=== PATIENT | male | born 1950 | race Caucasian/White ===

== ENCOUNTER 2016-11-08 14:17 | Emergency (ER) | payer MEDICARE ==
--- NOTE | 2016-11-08 14:44 | ED ---
General Adult HPI - General Chief complaint: Fall Stated complaint: Fall Time Seen by Provider: 11/08/16 14:31 Source: patient, family, RN notes reviewed Mode of arrival: wheelchair Limitations: no limitations - History of Present Illness Initial comments: Patient 66-year-old male with a significant past medical history for astrocytoma , DVT, status post brain surgery times one month, who presents emergency room today with chief complaint of a head injury that occurred 1 day ago. Patient does admit that he was getting out of a lawn chair yesterday got tripped up falling down hitting the right side of his head. Does admit to a small abrasion. Patient states he was no loss conscious. Denies any headache. He denies any other complaints. Patient's at bedside providing history stating that they did call on-call neurologist who advised coming to the emergency room for a CT of the brain. Patient also admits to some discomfort to the right shoulder due to the fall. States worse with certain movements of abduction and extension. He denies any other complaints or associated symptoms. Patient denies any recent fever, chills, shortness of breath, chest pain, back pain, abdominal pain, nausea or vomiting, numbness or tingling, dysuria or hematuria, constipation or diarrhea, headaches or visual changes, or any other complaints. - Related Data Home Medications Medication Instructions Recorded Confirmed Benazepril HCl 20 mg PO DAILY 11/08/16 11/08/16 Cholecalciferol [Vitamin D3] 1,000 unit PO DAILY 11/08/16 11/08/16 Ciprofloxacin HCl [Cipro] 500 mg PO BID 11/08/16 11/08/16 Docusate [Colace] 100 mg PO BID 11/08/16 11/08/16 Enoxaparin [Lovenox] 100 mg SQ Q12H 11/08/16 11/08/16 Lacosamide [Vimpat] 200 mg PO BID 11/08/16 11/08/16 Mupirocin 2% Oint [Bactroban 2% 1 applic TOPICAL BID 11/08/16 11/08/16 Oint] Pravastatin Sodium [Pravachol] 20 mg PO HS 11/08/16 11/08/16 Tamsulosin HCl [Flomax] 0.4 mg PO HS 11/08/16 11/08/16 amLODIPine [Norvasc] 5 mg PO BID 11/08/16 11/08/16 Allergies Allergy/AdvReac Type Severity Reaction Status Date / Time No Known Allergies Allergy Verified 11/08/16 14:52 Review of Systems ROS Statement: Those systems with pertinent positive or pertinent negative responses have been documented in the HPI. ROS Other: All systems not noted in ROS Statement are negative. Past Medical History Past Medical History: Cancer, Deep Vein Thrombosis (DVT), Hypertension, Prostate Disorder Additional Past Medical History / Comment(s): glioma History of Any Multi-Drug Resistant Organisms: None Reported Past Surgical History: Orthopedic Surgery Additional Past Surgical History / Comment(s): brain surgery, neck surgery Past Psychological History: No Psychological Hx Reported Smoking Status: Never smoker Past Alcohol Use History: None Reported Past Drug Use History: None Reported General Exam - General Exam Comments Initial Comments: General: The patient is awake and alert, in no distress, and does not appear acutely ill. Eye: Pupils are equal, round and reactive to light, extra-ocular movements are intact. No nystagmus. There is normal conjunctiva bilaterally. No signs of icterus. Ears, nose, mouth and throat: There are moist mucous membranes and no oral lesions. Neck: The neck is supple, there is no tenderness or JVD. No cervical spine tenderness. Cardiovascular: There is a regular rate and rhythm. No murmur, rub or gallop is appreciated. Respiratory: Lungs are clear to auscultation, respirations are non-labored, breath sounds are equal. No wheezes, stridor, rales, or rhonchi. Musculoskeletal: Normal ROM. Normal appearance to the right shoulder. Shows good range of motion. Mild tenderness anteriorly Strength 5/5. Sensation intact. Pulses equal bilaterally 2+. Neurological: A&O x 3. CN II-XII intact, There are no obvious motor or sensory deficits. Coordination appears grossly intact. Speech is normal. Skin: Skin is warm and dry. Facial abrasion to the right side of forehead. Psychiatric: Cooperative, appropriate mood & affect, normal judgment. Limitations: no limitations Course Vital Signs 11/08/16 11/08/16 14:25 15:43 Temperature 98.0 F 97.9 F Pulse Rate 75 62 Respiratory 20 16 Rate Blood Pressure 110/60 123/71 O2 Sat by Pulse 98 96 Oximetry - Reevaluation(s) Reevaluation #1: 11/08/16 15:[address] brain shows 1. 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 There is deformity of the left ventricle with suggestion of parenchymal resection and communication with CSF space along the convexity. 2. However, there is tiny acute component of a subdural hematoma just deep to the left frontal craniotomy flap measuring 2 mm thick. No midline shift. These results were discussed with the patient and family at bedside. Patient did have surgery through [facility]. [facility]. Patient will be transferred Medical Decision Making - Medical Decision Making [facility] was contacted. [facility] did accept report for Dr. Grimm. He did discuss the case and they will accept a ER to ER transfer. Disposition Clinical Impression: Subdural hematoma Disposition: OTHER INSTITUTION NOT DEFINED Condition: Good Instructions: Subdural Hematoma (ED) Referrals: Matthew Chiu MD [Primary Care Provider] - 1-2 days Time of Disposition: 16:05 (Transferred by EMS) - Out of Hospital Transfer - Req. Specs Out of Hospital Transfer - Requested Specifics: Other Emergency Center ([facility])
--- NOTE | 2016-11-08 15:32 | CT ---
EXAMINATION TYPE: CT brain wo con DATE OF EXAM: 11/08/2016 COMPARISON: NONE HISTORY: 66-year-old male with fall injury. History of 3 prior brain surgeries. TECHNIQUE: Examination was done in axial plane without intravenous contrast. Coronal and sagittal r econstructions performed. CT DLP: 1118 mGycm Automated exposure control for dose reduction was used. FINDINGS: Deformity of the left lateral ventricle secondary to prior proximal resection. There is overlying lef t frontal craniotomy flap and moderate-sized chronic subdural or cystic hygroma along the left latera l convexity measuring up to 1.7 cm thick in the anterior left frontal region and 2.1 cm at the fronto parietal vertex. However, there is more hyperdense 2 mm thick subdural collection just deep to the cr aniotomy flap. There appears to be mild chronic mass effect onto the underlying brain parenchyma especially along th e left frontal lobe. No midline shift or hydrocephalus. No effacement of basal subarachnoid cisterns. Paranasal sinuses and mastoid air cells well pneumatized. Orbits and globes are intact. IMPRESSION: 1. 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 There is deformity of the left lateral ventricle with suggestion of prior parench ymal resection and communication with the CSF space along the convexity. 2. However, there is tiny acute component to the subdural hematoma just deep to the left frontal cran iotomy flap measuring 2 mm thick. No midline shift. Findings called to the ER and given to ENEIDA Melgar at 3:30 PM.
--- NOTE | 2016-11-08 15:36 | XR ---
EXAMINATION TYPE: XR shoulder complete RT DATE OF EXAM: 11/08/2016 COMPARISON: NONE HISTORY: 66-year-old male with pain after fall yesterday TECHNIQUE: 3 views FINDINGS: Degenerative changes at the acromioclavicular joint with a fragmented 1 cm sliver or loose body. Ther e is some soft tissue swelling suggested at the AC joint that could represent capsular hypertrophy or joint distention from a sprain. Subacromial space is preserved. No tendinous or bursal calcification s. No acute fracture, subluxation, or dislocation. IMPRESSION: Some swelling at the AC joint could relate to underlying capsular hypertrophy from osteoarthritic rc nge. Correlate for any point tenderness at the AC joint to exclude an AC joint sprain. Otherwise, no acute osseous abnormality seen.
[2016-11-08 15:50] VITALS: PULSE 62; RESP 16
[2016-11-08] MEDS ORDERED: SODIUM CHLORIDE 0.9% 1,000 ML IV STA (15:57)
[2016-11-08 16:35] LABS: Basophils % (A) 0 %; CH 32.4; CHCM 35.5; Eosinophils # (A) 0.1 k/uL (0-0.7); Eosinophils % (A) 2 %; HCT 37.3 % (39.0-53.0); HDW 2.91; HGB 12.9 gm/dL (13.0-17.5); Luc % (Auto) 4; Lymphocytes # (A) 1.5 k/uL (1.0-4.8); Lymphocytes % (A) 33 %; MCH 31.8 pg (25.0-35.0); MCHC 34.7 g/dL (31.0-37.0); MCV 91.5 fL (80.0-100.0); Mean Platelet Volume 7.1; Monocytes # (A) 0.4 k/uL (0-1.0); Monocytes % (A) 10 %; Neutrophils # (A) 2.3 k/uL (1.3-7.7); Neutrophils % (A) 51 %; RBC 4.07 m/uL (4.30-5.90); RDW 13.7 % (11.5-15.5); WBC 4.5 k/uL (3.8-10.6)
[2016-11-08 16:42] LABS: INR 1.1 (<1.2); Partial Thromboplastin Time 27.7 sec (22.0-30.0); Prothrombin Time 10.9 sec (9.0-12.0)
[2016-11-08 16:45] LABS: ALT 72 U/L (21-72); AST 30 U/L (17-59); Alkaline Phosphatase 47 U/L (38-126); Anion Gap 6 mmol/L; Blood Urea Nitrogen 9 mg/dL (9-20); Calcium 8.7 mg/dL (8.4-10.2); Carbon Dioxide 27 mmol/L (22-30); Chloride 105 mmol/L (98-107); Glucose 75 mg/dL (74-99); Non-African American GFR(MDRD) >60 (>60 ml/min/1.73 sqM); Potassium 3.9 mmol/L (3.5-5.1); Sodium 138 mmol/L (137-145); Total Bilirubin 0.3 mg/dL (0.2-1.3); Total Protein 5.6 g/dL (6.3-8.2)
[2016-11-08 16:52] VITALS: BP 125/64; TEMP 98.2
== END 2016-11-08 17:00 | disposition other institution (70) ==
LOC: EC 14:17
DX: S06.5X0A Traumatic subdural hemorrhage without loss of consciousness, initial encounter (principal); I10 Essential (primary) hypertension; Z86.718 Personal history of other venous thrombosis and embolism; Z85.9 Personal history of malignant neoplasm, unspecified; Z79.01 Long term (current) use of anticoagulants; Z79.899 Other long term (current) drug therapy; W01.10XA Fall on same level from slipping, tripping and stumbling with subsequent striking against unspecified object, initial encounter; Y92.009 Unspecified place in unspecified non-institutional (private) residence as the place of occurrence of the external cause
CPT/HCPCS: 36415; 70450; 80053; 85025; 85610; 85730; 99285

== ENCOUNTER 2021-02-06 11:40 | Day surgery (SDC) | payer MEDICARE ==
[2021-02-04 15:40] VITALS: BMI 30.9
--- NOTE | 2021-02-05 19:38 | HP ---
HISTORY AND PHYSICAL DATE OF SURGERY: 02/06/2021 Aries seals is an 70-year-old patient seen with progressive right knee pain. We discussed options for treatment. He elected to proceed with right knee arthroscopy. Consent was obtained. Medical clearance was provided. PAST MEDICAL HISTORY: Hypertension, hyperlipidemia. PAST SURGICAL HISTORY: Ankle surgery, brain surgery. MEDICATIONS: Amlodipine, benazepril, pravastatin. ALLERGIES: None. SOCIAL HISTORY: Denies tobacco use. PHYSICAL EVALUATION OF THE RIGHT KNEE: Range of motion is -2/3 to 120. Mild effusion. Tenderness medial and lateral joint lines. Positive medial Zachary's. Positive lateral Zachary's. Ligaments stable. Hip rotation without pain. Distal neurovascular exam intact. Right knee radiographs revealed moderate lateral compartment osteoarthritis. MRI right knee revealed a complex medial meniscal tear and bucket-handle lateral meniscal tear. IMPRESSION: 1. Internal derangement of right knee with meniscal tears. 2. Right knee osteoarthritis. 3. Hypertension. 4. Hyperlipidemia. PLAN: Right knee arthroscopy with partial meniscectomy and debridement. MMODL / IJN: [id number] /
[2021-02-06] MEDS ORDERED: LACTATED RINGERS 1,000 ML IV SCH (11:57)
[2021-02-06] MEDS ORDERED: HYDROmorphone 0.5 MG/0.5 ML SYRINGE IVP PRN (11:57)
[2021-02-06] MEDS ORDERED: LIDOCAINE 1% (10MG/ML) FOR IV START INTRADERMA PRN (11:57)
[2021-02-06] MEDS ORDERED: ONDANSETRON 4 MG/2 ML VIAL IVP ONE (11:57)
[2021-02-06] MEDS ORDERED: DEXAMETHASONE SOD PHOSPHATE 4 MG/ML 1 ML VIAL IV ONE (11:57)
[2021-02-06] MEDS ORDERED: MIDAZOLAM 2 MG/2 ML VIAL IV PRN (11:57)
[2021-02-06 12:55] LABS: Partial Thromboplastin Time 23.9 sec (22.0-30.0); Prothrombin Time 10.9 sec (9.0-12.0)
[2021-02-06 12:57] LABS: ALT 20 U/L (4-49); AST 21 U/L (17-59); African American GFR (CKD) >90 (>60 ml/min/1.73 sqM); Albumin 4.2 g/dL (3.5-5.0); Alkaline Phosphatase 45 U/L (38-126); Anion Gap 8 mmol/L; Blood Urea Nitrogen 18 mg/dL (9-20); Calcium 9.5 mg/dL (8.4-10.2); Carbon Dioxide 25 mmol/L (22-30); Chloride 105 mmol/L (98-107); Glucose 95 mg/dL (74-99); Non-African American GFR(CKD) >90 (>60 ml/min/1.73 sqM); Potassium 4.3 mmol/L (3.5-5.1); Sodium 138 mmol/L (137-145); Total Bilirubin 0.7 mg/dL (0.2-1.3)
[2021-02-06 12:59] LABS: Basophils % (A) 1 %; Eosinophils # (A) 0.1 k/uL (0-0.7); Eosinophils % (A) 1 %; HCT 42.6 % (39.0-53.0); HGB 15.5 gm/dL (13.0-17.5); Hyperchromasia Slight; Lymphocytes % (A) 32 %; MCHC 36.4 g/dL (31.0-37.0); MCV 90.6 fL (80.0-100.0); Monocytes # (A) 0.4 k/uL (0-1.0); Monocytes % (A) 6 %; Neutrophils # (A) 3.7 k/uL (1.3-7.7); Neutrophils % (A) 59 %; Platelet Count 194 k/uL (150-450); RDW 12.9 % (11.5-15.5); WBC 6.3 k/uL (3.8-10.6)
[2021-02-06] MEDS ORDERED: SUCCINYLCHOLINE CHLORIDE 100 MG/5 ML SYR IV ONE (13:42)
[2021-02-06] MEDS ORDERED: PROPOFOL 10 MG/ML 20 ML VIAL IV ONE (13:42)
[2021-02-06] MEDS ORDERED: fentaNYL (PF) 50 MCG/ML 2 ML AMP ONE (13:42)
[2021-02-06] MEDS ORDERED: BUPIVACAINE (PF) 0.25% 30 ML VIAL INTRAARTIC ONE ×2 (14:06→14:10)
--- NOTE | 2021-02-06 14:23 | P.OP ---
Date of Procedure: 02/06/21 Preoperative Diagnosis: Internal derangement right knee Postoperative Diagnosis: 1. Tear lateral meniscus right knee 2. Grade 3 chondromalacia medial femoral condyle right knee 3. Grade 4 chondromalacia lateral tibial plateau right knee 4. Grade 3/4 chondromalacia patella right knee 5. Reactive synovitis medial, lateral and suprapatellar compartments right knee Procedure(s) Performed: 1. Arthroscopic partial lateral meniscectomy right knee 2. Arthroscopic chondroplasty medial femoral condyle right knee 3. Arthroscopic partial synovectomy medial, lateral and suprapatellar compartments right knee Anesthesia: TIFFANYA, local Surgeon: Umair Nuñez Estimated Blood Loss (ml): 6 Pathology: none sent Condition: stable Disposition: PACU Indications for Procedure: 70-year-old patient seen with progressive right knee pain. After having treatment options discussed, he elected to proceed with arthroscopy. Operative Findings: See description of procedure Description of Procedure: Patient was taken to the operative suite. Patient underwent a general anesthetic by the department of anesthesia. Patient was given preoperative antibiotics. The right lower extremity was placed in a well-padded arthroscopic leg wood. The right leg was prepped and draped in the normal sterile orthopedic fashion. A lateral parapatellar and suprapatellar incision was made. Trochars were inserted. Arthroscopy was initiated. Suprapatellar pouch revealed diffuse thick reactive synovitis. The patellofemoral joint appeared to articulate congruently. There was grade 3/4 chondromalacia of the patellofemoral joint without any significant osteochondral tears present. The scope was guided into the medial gutter. No loose bodies or plica were identified. The scope was then guided into the medial compartment. A medial parapatellar incision was made. Trocar inserted followed by probe. The medial meniscus was found to have some superficial fraying. There were grade 3 chondromalacia changes medial femoral condyle with some osteochondral flap tears present. There was thick reactive synovitis anteriorly. I introduced a motorized shaver and debrided that area fraying posterior medial meniscus. I performed a chondroplasty of the medial femoral condyle getting down to stable osteochondral tissue. I performed a partial synovectomy decompressing the thick reactive synovitis. The residual osteochondral surface appeared stable. There was good decompression of the synovitis. Scope and probe were then guided into the intercondylar notch. Cruciates were identified, probed and found to be stable. The scope and probe were then guided into lateral compartment. There was a radial tear involving the posterior lateral meniscus. There was a very large area of grade 4 chondromalacia involving the lateral tibial plateau with a very large area of exposed bone encompassing approximately 80% tibial plateau. There was similar exposed bone on the lateral femoral condyle side. There was thick reactive synovitis anteriorly. I performed a partial lateral meniscectomy getting down to stable meniscal tissue. I performed a partial synovectomy decompressing the reactive synovitis. The shaver was removed. The residual meniscus was stable. There was good decompression of synovitis. The scope was in guided back into the suprapatellar compartment. I introduced a motorized shaver into the suprapatellar compartment. I performed a partial synovectomy. Shaver was removed. There was good decompression of the synovitis. I now took one more look around the entire knee, no residual debris. Instruments were now removed from the joint. The joint was infiltrated with .25% Marcaine. Steri- Strips were applied to the portal sites. Sterile dressings were applied. The patient was placed into a CHANDRA hose. No tourniquet was utilized. The patient was awakened, transferred to a bed and taken to recovery stable satisfactory condition.
[2021-02-06 14:29] VITALS: TEMP 97.4
[2021-02-06 15:25] VITALS: RESP 16
[2021-02-06 15:32] VITALS: BP 131/82; PULSE 63
== END 2021-02-06 16:21 | disposition home or self-care (01) ==
LOC: OR 11:40
PROVIDERS: ATTEND Orthopaedic Surgery
DX: M23.200 Derangement of unspecified lateral meniscus due to old tear or injury, right knee (principal); M22.41 Chondromalacia patellae, right knee; M65.861 Other synovitis and tenosynovitis, right lower leg; I10 Essential (primary) hypertension; E78.5 Hyperlipidemia, unspecified; I45.10 Unspecified right bundle-branch block; N40.0 Benign prostatic hyperplasia without lower urinary tract symptoms; I25.10 Atherosclerotic heart disease of native coronary artery without angina pectoris; I25.84 Coronary atherosclerosis due to calcified coronary lesion; R56.9 Unspecified convulsions; Z87.891 Personal history of nicotine dependence; Z98.890 Other specified postprocedural states; Z85.841 Personal history of malignant neoplasm of brain; Z79.82 Long term (current) use of aspirin; Z79.899 Other long term (current) drug therapy; Z88.8 Allergy status to other drugs, medicaments and biological substances
CPT/HCPCS: 80053; 85025; 85610; 85730; 29881; J2250; J1100; J0690; J2405; J3010; J0330; J2704

== ENCOUNTER → 2021-02-12 | Outpatient (CLI) | payer MEDICARE ==
--- NOTE | 2021-02-12 15:19 | EEG ---
ELECTROENCEPHALOGRAM REPORT DATE OF SERVICE: 02/12/2021 PREAMBLE: This is a 70-year-old male with history of malignant neoplasm of the brain. He was diagnosed with brain tumor in 2001 in the left frontal lobe. He had surgery to remove part of the tumor in 2013, 2014 and 2016. He had radiation in 2017 and had his first seizure. 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 The patient denies headache. CURRENT MEDICATIONS: Amlodipine, benazepril, aspirin, vitamin D, vitamin B12, Vimpat 250 mg b.i.d., Keppra 500 mg b.i.d., Pravachol and Flomax. EEG FINDINGS: This is a 21-channel digital EEG recorded with video component, utilizing 10/20 international system with referential and bipolar montages. Background consists of well developed, well regulated, moderate voltage activity in mixed frequencies of 7 hertz theta, with 8 hertz alpha activity seen in bihemispheric region. Background seems to be slightly reactive to eye opening and closing. Photic driving response was not seen. Hyperventilation was not performed. Some drowsiness was seen with appearance of bilaterally symmetric theta frequency rhythm. Deeper stages of sleep were not seen. No focal or generalized epileptiform activity was seen. IMPRESSION: This is essentially a normal awake and drowsy EEG. No focal, lateralized or epileptiform activity was seen. MMJLL / TIERNEYN: [id number] /
== END | disposition home or self-care (01) ==
LOC: NEUROMAIN 08:09
PROVIDERS: ATTEND Neurological Surgery
DX: I71.9 Aortic aneurysm of unspecified site, without rupture (principal)
CPT/HCPCS: 95816

== ENCOUNTER 2021-09-24 11:18 | Inpatient (IN) | payer MEDICARE ==
[2021-09-22 16:14] VITALS: BMI 31.1
[~2021-09-24 11:18] MED LIST: ACETAMINOPHEN TAB 500 MG TAB PO PRN; DEXAMETHASONE SOD PHOSPHATE 10 MG/ML 1 ML VIAL IV PRN; DOCUSATE 100 MG CAP PO PRN; FAMOTIDINE 20 MG/2 ML VIAL IVP PRN; HYDROmorphone 0.5 MG/0.5 ML SYRINGE IVP PRN; KETOROLAC 15 MG/ML 1 ML VIAL IVP PRN; LIDOCAINE 1% (10MG/ML) FOR IV START INTRADERMA PRN; ONDANSETRON 4 MG/2 ML VIAL IVP PRN; TRANEXAMIC ACID IN NACL,ISO-OS 1,000 MG in SALINE 1 100ML.BAG IVPB PRN; oxyCODONE ER 10 MG TAB.ER.12H PO PRN
[2021-09-24] MEDS: LACTATED RINGERS 1,000 ML IV SCH (12:20)
[2021-09-24] MEDS ORDERED: MIDAZOLAM 2 MG/2 ML VIAL IV ONE (12:40)
[2021-09-24] MEDS ORDERED: MIDAZOLAM 2 MG/2 ML VIAL ONE (13:00)
[2021-09-24] MEDS ORDERED: GLYCOPYRROLATE 0.2 MG/ML 2 ML VIAL ONE (13:00)
[2021-09-24] MEDS ORDERED: LIDOCAINE 2% INJ 20 MG/ML (2 ML VIAL) ONE (13:00)
[2021-09-24] MEDS ORDERED: fentaNYL (PF) 50 MCG/ML 2 ML AMP ONE (13:00)
[2021-09-24] MEDS ORDERED: ROPIVACAINE 5 MG/ML 30 ML VIAL ONE (13:00)
[2021-09-24] MEDS ORDERED: SODIUM CHLORIDE 0.9% (PF) 10 ML VIAL ONE (13:00)
[2021-09-24] MEDS ORDERED: ePHEDrine 50 MG/ML 1 ML VIAL ONE (13:00)
[2021-09-24] MEDS ORDERED: NEOSTIGMINE 1 MG/ML 10 ML VIAL ONE (13:00)
[2021-09-24] MEDS ORDERED: SUCCINYLCHOLINE CHLORIDE 100 MG/5 ML SYR IV ONE (13:00)
[2021-09-24] MEDS ORDERED: TRANEXAMIC ACID IN NACL,ISO-OS 1,000 MG/100 ML BAG ONE (13:00)
[2021-09-24] MEDS ORDERED: PROPOFOL 10 MG/ML 20 ML VIAL IV ONE (13:00)
[2021-09-24] MEDS ORDERED: ROCURONIUM 10 MG/ML (5 ML VIAL) IV ONE (13:00)
--- NOTE | 2021-09-24 13:16 | P.ANPRN ---
Procedure Note - Anesthesia - Nerve Block Performed Right Adductor Canal Time Out Performed: Yes (12:39) Date of Procedure: 09/24/21 Procedure Start Time: 12:39 Procedure Stop Time: 12:46 Location of Patient: PreOp Indication: Acute Post-Operative Pain, Requested by Surgeon (Dr Bonilla) Sedation Type: Sedate with meaningful contact maintained Preparation: Sterile Prep Position: Supine Catheter: None Needle Types: Pajunk Needle Gauge: 21 Ultrasound used to visualize needle placement: Yes Ultrasound used to observe medication spread: Yes Injectate: 0.5% Ropivacaine (see comment for volume) (15cc) Blood Aspirated: No Pain Paresthesia on Injection Noted: No Resistance on Injection: Normal Image Stored and Saved: Yes Events: Uneventful and Well Tolerated
--- NOTE | 2021-09-24 13:17 | P.ANPRN ---
Procedure Note - Anesthesia - Nerve Block Performed Right iPack Time Out Performed: Yes Date of Procedure: 09/24/21 Procedure Start Time: 12:47 Procedure Stop Time: 12:55 Location of Patient: PreOp Indication: Acute Post-Operative Pain, Requested by Surgeon (Dr Bonilla) Sedation Type: Sedate with meaningful contact maintained Preparation: Sterile Prep Position: Supine Catheter: None Needle Types: Pajunk Needle Gauge: 21 Ultrasound used to visualize needle placement: Yes Ultrasound used to observe medication spread: Yes Injectate: 0.5% Ropivacaine (see comment for volume) (15cc + 5cc PF Normal saline) Blood Aspirated: No Pain Paresthesia on Injection Noted: No Resistance on Injection: Normal Image Stored and Saved: Yes Events: Uneventful and Well Tolerated
[2021-09-24] MEDS ORDERED: ceFAZolin 3,000 MG in SODIUM CHLORIDE 0.9% IRRIGATIO 3,000 ML IRRIGATION ONE (13:36)
[2021-09-24] MEDS: ROPIVACAINE/EPI/CLONIDINE/KET 50 ML SYRINGE MISCELLANE PRN ×2 (13:36→14:25)
[2021-09-24] MEDS ORDERED: LACTATED RINGERS 1,000 ML IV ONE (15:30)
[2021-09-24] MEDS ORDERED: HYDROmorphone 0.5 MG/0.5 ML SYRINGE IVP PRN ×3 (15:46)
[2021-09-24] MEDS ORDERED: ONDANSETRON 4 MG/2 ML VIAL IVP PRN (15:46)
[2021-09-24] MEDS ORDERED: hydrOXYzine pamoate 25 MG CAP PO PRN (15:46)
[2021-09-24] MEDS ORDERED: NALOXONE 0.4 MG/ML 1 ML VIAL IV PRN (15:46)
--- NOTE | 2021-09-24 15:54 | P.OP ---
Date of Procedure: 09/24/21 Preoperative Diagnosis: 1. Severe right knee osteoarthritis 2. Coronary artery disease 3. History of DVT 4. Benign brain tumor Postoperative Diagnosis: Same Procedure(s) Performed: Right total knee arthroplasty Implants: 1. [employer]urant triathlon size #7 CR femur 2. [employer]urant triathlon size #7 universal tibial baseplate 3. Geena triathlon size #7, 11 mm CS polyliner 4. [employer]urant triathlon 35 mm asymmetric all poly-patellar button Anesthesia: GETA Surgeon: Dajuan Bonilla Stallion Keeper #1: Viraj Mathias Estimated Blood Loss (ml): 200 IV fluids (ml): 1,200 Pathology: none sent Condition: stable Disposition: PACU Indications for Procedure: The patient is a very pleasant 71-year-old male with a long-standing history of severe right knee pain secondary to arthritis. He is seen multiple providers for this. He has failed over 12 months of nonsurgical treatment and requested a total knee replacement. The patient has several pre-existing medical issues including a prior benign brain tumor requiring surgery. He has had some issues with gait disturbance due to this. I long discussion with the patient and his in the office prior to surgery. Due to his continued pain I think is a good candidate for an elective total knee replacement. We discussed the potential risks and complications of surgery including but certainly not limited to risks from anesthesia, superficial infection, deep periprosthetic joint infection, delayed wound healing, damage to local blood vessels or nerves, instability, stiffness, aseptic loosening, extensor mechanism problems, DVT, PE, need for revision surgery, the satisfaction of surgical outcome, and inability to regain preinjury level of function, and possibly loss of life or limb. The patient and his voiced understanding of these potential complications and also acknowledge that other less common complications are possible. They provided their verbal and written consent to go forward with surgery. Operative Findings: Severe tricompartmental osteoarthritis Description of Procedure: The patient was identified in preoperative holding and the correct operative extremity was verified and marked with a marker. I reviewed the consent form with the patient at length. All of their questions were answered. The patient was given a block by anesthesia. They were then brought back to the operating room. They were transferred onto the operating room table where a general anesthetic, preoperative antibiotics, and tranexamic acid were administered by anesthesia. A tourniquet was applied to the proximal aspect of the operative extremity. The contralateral extremity was padded under the heel and secured to the operating room table with a nonsterile blue towel and tape. The ipsilateral arm was carefully draped across the patient's chest and secured with a pillow and foam. A post was applied over the lateral aspect of the ipsilateral thigh and a bolster was placed under the ipsilateral foot. I verified that the operative extremity was stable and the knee was flexed to 90. The operative extremity was then placed in a leg wood, nonsterile drapes were applied, and the extremity was prepped and draped sterilely in the standard sterile fashion. Prior to starting surgery timeout was performed identifying the correct patient, operative extremity, and procedure. The leg was then elevated, exsanguinated with an Esmarch bandage, and the tourniquet was inflated. An anterior midline incision was made sharply with a scalpel. Once I had dissected deep to the superficial fascial layer medial and lateral flaps were elevated. A medial parapatellar arthrotomy was created. Upon opening the knee joint there were diffuse arthritic changes in all 3 compartments. The anterior horn of the medial meniscus were sharply released and a medial release was performed around the posterior medial corner of the knee to facilitate retractor placement. The fat pad was excised with electrocautery. The patella was found to be severely arthritic and a provisional cut was made with a sagittal saw to facilitate mobilization of the extensor mechanism during the procedure. Remnan ts of the ACL and PCL were then excised from the notch. 4 mm pins were then placed within the incision in the medial distal femur and proximal tibia. Arrays were applied to the pins and I verified they were completely tightened. The knee was then registered with the [employer] robot and manipulations in implant position were made to balance the knee and opitmize implant position. Using the [employer] robotic saw all cuts were made in accordance with our plan. After all bony fragments had been removed the cuts were verified with the planar probe. The tibia was then subluxed forward and sized. The knee was brought into flexion and a lamina bread stacker was placed to allow removal of the meniscal remnants both medially and laterally as well as posterior osteophytes. Local anesthetic was then infiltrated around the joint capsule. Trial implants were then placed within the knee. Range of motion and collateral ligament tension was then evaluated. Adjustments in implant size and position were then made accordingly. Once the knee was felt to be appropriately balanced the Everett pins were removed. The patella was then recut, sized, and punched. A trial patellar button was then placed. With the trial components in place, the patella tracked midline. The femur was then drilled and the trial component removed. The trial tibial component was then appropriately rotated, pinned, and prepared for the keel. All trial components were then removed from the knee. The knee was thoroughly irrigated with pulsatile lavage. Cement was prepared via vacuum mixing in a bowl on the back table. I then hand pressurized cement into the femur and tibia and placed the implants beginning with the tibial base tray and poly liner, femoral component, and finally the patellar button. All extruded cement was removed including from the pin sites. Once the cement had hardened the knee was evaluated one final time with the final polyethylene liner in place. The knee had full extension and flexion and felt stable to varus and valgus stress throughout the arc of motion. The tourniquet was released and with the tourniquet down the patella tracked midline. All bleeders were controlled with electrocautery. The knee was then soaked for 3 minutes with a dilute Betadine soak. The knee was thoroughly irrigated using 3 L of sterile saline and pulsatile lavage. A deep drain was placed. The extensor mechanism was then reapproximated using pop off Vicryl sutures followed by a running barbed suture. The knee was then closed in layers with a 0 strata fix for the deep fascial layer, 2-0 strata fix for the superficial subcutaneous layer and Monocryl and Steri-Strips for the skin. A sterile dressing and drain sponge were applied. I verified that all instrument, sponge, and sharp counts were correct. The patient was then transferred off the operating room table, extubated, and brought to recovery having tolerated the procedure well. Viraj Mathias PA-C was required as a skilled nursing home assistant due to the complexity of the procedure for patient positioning, draping, retraction, placement of hardware, and closure of wound. PLAN: The patient can weight-bear as tolerated on the operative extremity. DVT prophylaxis with Eliquis twice a day based on preoperative risk stratification due to his history of DVT/PE. Follow-up in the office in 2 weeks for wound check and x-rays of the knee including an AP and lateral.
--- NOTE | 2021-09-24 16:25 | XR ---
EXAMINATION TYPE: XR knee limited RT DATE OF EXAM: 09/24/2021 COMPARISON: X-ray dated 08/19/2021 INDICATION: Postoperative TECHNIQUE: 2 views of the left knee FINDINGS: Interval total knee arthroplasty. Good alignment of the prosthesis. Acute postoperative changes with operative bed soft tissue swelling, gas and surgical drain. Arterial atherosclerotic calcifications. IMPRESSION: As above.
[2021-09-24] MEDS ORDERED: HYDROmorphone 0.5 MG/0.5 ML SYRINGE IVP ONE (16:42)
[2021-09-24] MEDS: SENNOSIDES-DOCUSATE SODIUM 1 EACH TAB PO SCH (21:22)
[2021-09-24] MEDS: LACOSAMIDE 50 MG TABLET PO SCH (21:23)
[2021-09-24] MEDS: levETIRAcetam 500 MG TAB PO SCH (21:23)
[2021-09-24] MEDS ORDERED: NON FORMULARY DRUG (Lacosamide [Vimpat] 200 MG Tablet) PO SCH (22:00)
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
[2021-09-25] MEDS: HYDROcodone/APAP 5-325MG 1 EACH TAB PO PRN ×3 (08:28→20:17)
[2021-09-25] MEDS: CHOLECALCIFEROL 25 MCG (1000 IU) TABLET PO SCH (09:09)
[2021-09-25] MEDS: levETIRAcetam 500 MG TAB PO SCH ×2 (09:09→20:15)
[2021-09-25] MEDS: CALCIUM CARB-VIT D 500 MG-5 MCG TAB PO SCH (09:09)
[2021-09-25] MEDS: LACOSAMIDE 50 MG TABLET PO SCH ×2 (09:09→20:11)
[2021-09-25] MEDS: APIXABAN 2.5 MG TABLET PO SCH ×2 (09:09→20:10)
[2021-09-25 09:31] LABS: Basophils # (A) 0.02 X 10*3/uL (0.00-0.10); Basophils % (A) 0.1 %; Eosinophils # (A) 0.01 X 10*3/uL (0.04-0.35); Eosinophils % (A) 0.1 %; HCT 40.1 % (39.6-50.0); HGB 13.7 g/dL (13.0-17.0); Immature Grans, Automated 0.5 %; Lymphocytes # (A) 1.57 X 10*3/uL (0.90-5.00); MCH 30.6 pg (27.0-32.0); MCHC 34.2 g/dL (32.0-37.0); MCV 89.7 fL (80.0-97.0); Mean Platelet Volume 10.6 fL (9.5-12.2); Monocytes # (A) 1.16 X 10*3/uL (0.20-1.00); Monocytes % (A) 7.4 %; NRBC Per 100 WBC 0 /100 WBCS (0.0-0.0); Neutrophils % (A) 81.9 %; Platelet Count 203 X 10*3/uL (140-440); RBC 4.47 X 10*6/uL (4.40-5.60); WBC 15.74 X 10*3/uL (4.50-10.00)
--- NOTE | 2021-09-25 10:01 | P.PN ---
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 Patient is currently admitted under orthopedic surgery team status post right total knee arthroplasty completed on 09/24/[address] Bonilla. We have been consulted for continued medical management throughout patient's hospitalization. Physical exam: Patient seen and fully evaluated at bedside this morning. He is postoperative day 1 and currently reports pain is not controlled, upon further review patient did not take any of his pain medication throughout the night. During assessment patient's arrived to bedside and reports that nurse called her to come in as patient was reportedly refusing his pain medication overnight. Had long discussion with patient regarding importance of pain management during recovery process. Patient verbalized understanding. Patient was in agreement to take medication and RN medicated patient at this time. Patient denied having any other complaints or concerns including headache, lightheadedness, chest pain, palpitations, shortness of breath, or experiencing any increased numbness/tingling/weakness in his extremities. Patient has drain in place, appears to have moderate output in drain. Orthopedic plans to leave drain in pl luis an additional night due to output. We will continue to monitor leukocytosis with repeat a.m labs. Vital signs reviewed and stable. General: Nontoxic, no distress and appears stated age. Derm: Skin warm and dry, normal coloration for ethnicity. Head: Atraumatic, normocephalic and symmetric. Eyes: EOMs intact, no lid lag, and anicteric sclera Mouth: no lip lesions, mucus membranes moist Cardiovascular: regular rate and rhythm with normal S1S2, no murmur, positive posterior tibial pulses bilaterally, and cap refill < 2 seconds. Lungs: Respirations even, regular, and unlabored on room air. Lungs CTA bilaterally, no rhonchi, no rales, no wheezing, and no accessory muscle usage. Abdominal: soft, nontender to palpation, no guarding, no appreciable organomegaly Ext: ROM intact (remains limited with right knee secondary to postsurgical pain). No gross muscle atrophy, no edema, no contractures, postsurgical dressing intact to right knee, drain in place, CHANDRA frank Neuro: Speech clear, face symmetrical and CN II-XII grossly intact with no noted focal neuro deficits Psych: Alert and oriented to person, place, time, and situation. Appropriate and pleasant affect. Assessment and Plan of Care: History of glioma of the brain status post brain surgeries 3 resulting in right-sided deficits including weakness, tingling, and tremors of right upper and lower extremity Seizure disorder -Maintain seizure precautions. -Continue daily medication regimen with Keppra and Vimpat. -Fall precautions. -Safe and supportive care with assistance as needed. Leukocytosis -Likely reactive. WBCs 15.4. We will continue to monitor with repeat a.m. labs. Severe right knee osteoarthritis Status post right total knee arthroplasty -Management per primary admitting orthopedic surgery team including DVT prophylaxis, pain management, weightbearing, and PT/OT. -Encourage use of incentive spirometry 10-15 times hourly while awake. History of DVT -Patient was placed on DVT prophylaxis with Eliquis. Hypertension -Monitor vital signs and continue daily medication regimen with amlodipine and l isinopril. Hyperlipidemia -Continue daily medication regimen with pravastatin 20 mg nightly. BPH -Patient is urinating without difficulties and postoperative period, please continue daily medication regimen with Flomax. Thank you for allowing us to participate in the care of this pleasant patient. Do not hesitate to contact us with questions. Someone can be reached from the [facility] hospitalist group all hours of the day at [phone] or via [facility]. Objective - Vital Signs Vital signs: Vital Signs Temp 98.4 F 09/25/21 07:33 Pulse 65 09/25/21 07:33 Resp 17 09/25/21 07:33 BP 173/88 09/25/21 07:33 Pulse Ox 97 09/25/21 07:33 FiO2 Intake & Output 09/24/21 09/25/21 09/25/21 18:59 06:59 18:59 Intake Total 1591 120 Output Total 200 880 Balance 1391 -880 120 Weight 96.5 kg Intake: IV 1351 Oral 240 120 Output: Drainage 280 Right Knee 280 Urine 600 Estimated Blood Loss 200 Other: Voiding Method Toilet Diaper Incontinent # Voids 1 1 - Labs CBC & Chem 7: 09/25/21 06:30 Labs: Abnormal Lab Results - Last 24 Hours (Table) 09/25/21 Range/Units 06:30 WBC 15.74 H (4.50-10.00) X 10*3/uL Immature Gran # 0.08 H (0.00-0.04) X 10*3/uL Neutrophils # 12.90 H (1.80-7.70) X 10*3/uL Monocytes # 1.16 H (0.20-1.00) X 10*3/uL Eosinophils # 0.01 L (0.04-0.35) X 10*3/uL
--- NOTE | 2021-09-25 11:12 | P.PN ---
Subjective Progress Note Date: 09/25/21 This patient is a 71- year old male who is status-post right total knee arthroplasty on 09/24/21. Today he is postoperative day #1. The patient is seen and examined bedside. He is currently at the bedside chair. He states he is experiencing moderate pain in the right knee. He has been ambulating into the bathroom. He otherwise feels well and has no additional complaints. He denies chest pain, shortness breath, other, vomiting, fevers, chills. Vital signs stable. Objective - Vital Signs Vital signs: Vital Signs Temp 98.4 F 09/25/21 07:33 Pulse 65 09/25/21 07:33 Resp 17 09/25/21 07:33 BP 173/88 09/25/21 07:33 Pulse Ox 97 09/25/21 07:33 FiO2 Intake & Output 09/24/21 09/25/21 09/25/21 18:59 06:59 18:59 Intake Total 1591 120 Output Total 200 880 Balance 1391 -880 120 Weight 96.5 kg Intake: IV 1351 Oral 240 120 Output: Drainage 280 Right Knee 280 Urine 600 Estimated Blood Loss 200 Other: Voiding Method Toilet Diaper Incontinent # Voids 1 1 - Exam On examination, the patient is sitting up in a bedside chair in no apparent distress. He is alert and oriented 3. On inspection of the right knee, there is a clean, dry, intact OpSite surgical dressing in place. There is no bleeding or drainage to the dressing. There is mild knee swelling. Hemovac drain is in place. Patient has good strength and range of motion of the right ankle and toes. Motor and sensory function is intact of the right lower extremity. Dorsalis pedis pulses easily palpable, the right lower extremity is warm and well perfused with brisk capillary refill distally. Calf is soft and nontender to palpation. - Labs CBC & Chem 7: 09/25/21 06:30 Labs: Abnormal Lab Results - Last 24 Hours (Table) 09/25/21 Range/Units 06:30 WBC 15.74 H (4.50-10.00) X 10*3/uL Immature Gran # 0.08 H (0.00-0.04) X 10*3/uL Neutrophils # 12.90 H (1.80-7.70) X 10*3/uL Monocytes # 1.16 H (0.20-1.00) X 10*3/uL Eosinophils # 0.01 L (0.04-0.35) X 10*3/uL Assessment and Plan Assessment: Status-post right total knee arthroplasty on 09/24/21. Post-operative day #1. Plan: - Weight-bear as tolerated on right lower extremity with a walker. Up with assistance. - Physical therapy for gait and balance training. - Keep surgical dressing in place. Keep hemovac drain in place. - Pain management as needed. - Eliquis for DVT prophylaxis, as patient has history of DVT in 2017. - 2 doses of postoperative antibiotics complete. - Internal medicine for millicent-operative medical management. - Case management consult for discharge planning. Patient would like to go to rehab at discharge.
[2021-09-25] MEDS: LACTATED RINGERS 1,000 ML IV SCH (15:45)
[2021-09-25] MEDS: lisinopriL 20 MG TAB PO SCH (20:10)
[2021-09-25] MEDS: TAMSULOSIN 0.4 MG CAP.ER.24H PO SCH (20:10)
[2021-09-25] MEDS: amLODIPine 5 MG TAB PO SCH (20:10)
[2021-09-25] MEDS: PRAVASTATIN SODIUM 20 MG TAB PO SCH (20:10)
[2021-09-25] MEDS: SENNOSIDES-DOCUSATE SODIUM 1 EACH TAB PO SCH (20:11)
[2021-09-26 09:13] LABS: African American GFR (CKD) 98.5 (60.0-200.0); Albumin 3.9 g/dL (3.8-4.9); Albumin/Globulin Ratio 1.95 (1.60-3.17); Anion Gap 11.7 mmol/L (10.00-18.00); BUN/Creat Ratio 17.22 Ratio (12.00-20.00); Blood Urea Nitrogen 15.5 mg/dL (9.0-27.0); Calcium 9.1 mg/dL (8.7-10.3); Carbon Dioxide 24.3 mmol/L (20.0-27.5); Magnesium 1.9 mg/dL (1.5-2.4); Potassium 4.1 mmol/L (3.5-5.5); Total Bilirubin 0.8 mg/dL (0.30-1.20); Total Protein 5.9 g/dL (6.2-8.2)
[2021-09-26] MEDS: LACTATED RINGERS 1,000 ML IV SCH (09:32)
[2021-09-26] MEDS: APIXABAN 2.5 MG TABLET PO SCH ×2 (09:35→19:22)
[2021-09-26] MEDS: LACOSAMIDE 50 MG TABLET PO SCH ×2 (09:35→19:22)
[2021-09-26] MEDS: CALCIUM CARB-VIT D 500 MG-5 MCG TAB PO SCH (09:35)
[2021-09-26] MEDS: CHOLECALCIFEROL 25 MCG (1000 IU) TABLET PO SCH (09:35)
[2021-09-26] MEDS: levETIRAcetam 500 MG TAB PO SCH ×2 (09:36→19:22)
--- NOTE | 2021-09-26 10:41 | P.DS ---
Providers Date of admission: 09/25/21 14:50 Expected date of discharge: 09/26/21 Attending physician: Dajuan Bonilla Consults: 09/24/21 15:46 Consult Physician Routine Consulting Provider: Abida Ordonez Consult Reason/Comments: medical managemnent Do you want consulting provider notified?: Yes Primary care physician: Matthew Chiu MD Hospital Course: This is a 71-year-old male who was last seen with complaint of continued right knee pain. The patient has a known history of degenerative arthritis of the right knee and presents to discuss surgical options. After discussion and consideration the patient elects to proceed with right ottal knee arthroplasty. The patient is seen preoperatively by Dr. Chiu, cardiology and cleared for surgery. Patient underwent a right total knee arthroplasty on 09/24/[address] Bonilla. The patient is admitted to [facility] for total right knee arthroplasty. The procedures performed without complication or sequelae. Patient is doing well postoperatively. Vital signs are stable at discharge. Labs are stable at discharge. Today is postoperative day #2. The patient is examined bedside with Dr. Bonilla. Patient is up to the bedside chair. He notes moderate pain in the knee, although it is well-controlled on oral medication. He is ambulating with a walker. Sandoval catheter was inserted this morning for internal medicine, as patient is having issues with urinary retention. Patient has no additional complaints at this time. On examination, the patient is sitting up in the bedside chair in no apparent distress. He is alert and oriented 3. On inspection of his right knee, there is a clean, dry, intact Opsite surgical dressing in place. No bleeding or drainage to the dressing. Mild swelling of the knee. Hemovac drain has been removed. Motor and sensory function is intact of the right lower extremity. The right lower extremity is warm and well-perfused with brisk capillary refill distally. Calf is soft and nontender to palpation. The patient is discharged to rehab on postop day #2 pending medical clearance. Please see orders and refer to the med rec for accurate list of medications. Plan - Discharge Summary Discharge Rx Participant: Yes New Discharge Prescriptions: New Docusate [Colace] 100 mg PO BID #60 capsule Omeprazole 40 mg PO DAILY 30 Days #30 cap HYDROcodone/APAP 5-325MG [[place] 5-325] 1 - 2 tab PO Q6HR PRN #40 tab PRN Reason: Pain Apixaban [Eliquis] 2.5 mg PO BID 30 Days #60 tab No Action Cholecalciferol [Vitamin D3] 2,000 unit PO DAILY Tamsulosin HCl [Flomax] 0.4 mg PO DAILY@1899 Pravastatin Sodium [Pravachol] 20 mg PO DAILY@1899 amLODIPine [Norvasc] 5 mg PO DAILY@1899 Benazepril HCl 20 mg PO DAILY@1899 Lacosamide [Vimpat] 200 mg PO DAILY@1000,2199 levETIRAcetam [Keppra] 500 mg PO DAILY@1000,220 Aspirin [Adult Low Dose Aspirin EC] 81 mg PO Q12H Lacosamide [Vimpat] 50 mg PO DAILY@1000,2199 Calcium Carbonate/Vitamin D3 [Calcium 600 mg-D3 20 mcg (800 unit)] 1 each PO DAILY B-Complex with Vitamin C 1 each PO DAILY Discharge Medication List Benazepril HCl 20 mg PO DAILY@189911/08/16 [History] Cholecalciferol [Vitamin D3] 2,000 unit PO DAILY 11/08/16 [History] Pravastatin Sodium [Pravachol] 20 mg PO DAILY@189911/08/16 [History] Tamsulosin HCl [Flomax] 0.4 mg PO DAILY@189911/08/16 [History] amLODIPine [Norvasc] 5 mg PO DAILY@189911/08/16 [History] Aspirin [Adult Low Dose Aspirin EC] 81 mg PO Q12H 02/04/21 [History] levETIRAcetam [Keppra] 500 mg PO DAILY@1000,219902/04/21 [History] B-Complex with Vitamin C 1 each PO DAILY 09/22/21 [History] Calcium Carbonate/Vitamin D3 [Calcium 600 mg-D3 20 mcg (800 unit)] 1 each PO DAILY 09/22/21 [History] Lacosamide [Vimpat] 50 mg PO DAILY@1000,219909/22/21 [History] Lacosamide [Vimpat] 200 mg PO DAILY@1000,219909/22/21 [History] HYDROcodone/APAP 5-325MG [[place] 5-325] 1 - 2 tab PO Q6HR PRN #40 tab 09/25/21 [Rx] Apixaban [Eliquis] 2.5 mg PO BID 30 Days #60 tab 09/26/21 [Rx] Docusate [Colace] 100 mg PO BID #60 capsule 09/26/21 [Rx] Omeprazole 40 mg PO DAILY 30 Days #30 cap 09/26/21 [Rx] Follow up Appointment(s)/Referral(s): Dajuan Bonilla MD [Medical Doctor] - 10/09/21 10:30 am Activity/Diet/Wound Care/Special Instructions: Weight bear as tolerated on operative extremity with a walker. Keep operative dressing intact until follow-up appointment. Call the office if your dressing becomes saturated or falls off. Take pain medications as prescribed. Take Eliquis as prescribed x 4 weeks for blood clot prevention. Follow-up in the office in two weeks with Dr. Bonilla. Call the office with any questions or concerns, Discharge Disposition: TRANSFER TO SNF/ECF
[2021-09-26] MEDS: HYDROcodone/APAP 5-325MG 1 EACH TAB PO PRN ×2 (11:52→19:22)
--- NOTE | 2021-09-26 12:08 | CDI ---
Documentation Clarification Form Date: 09/26/2021 11:56:21 AM From: Citlalli Rodriguez CCS, CCDS Admit Date: 09/25/2021 02:50:00 PM Patient Name: Aries Saldaña Visit Number: [id number] Discharge Date: ATTENTION: The Clinical Documentation Specialists (CDI) and [facility] Coding Staff appreciate your assistance in clarifying documentation. Please respond to the clarification below the line at the bottom and electronically sign. The CDI & [facility] Coding staff will review the response and follow-up if needed. Please note: Queries are made part of the Legal Health Record. If you have any questions, please contact the author of this message via ITS. Dr. Arely Canas: The patient was admitted on 09/25 for an elective Right Total Knee Arthoplasty and has documented history of BPH. Per the 09/26 Discharge Summary, the following is documented: Sandoval catheter was inserted this morning for internal medicine, as patient is having issues with urinary retention. Additional clarification is requested regarding the relationship, if any, that exists between the diagnosis and the procedure. Patients Admitting Diagnosis 09/25: Severe right knee osteoarthritis, CAD, History of DVT and Benign Brain Tumor. BPH is documented in the 09/25 Medical Management Consult and in the 09/25 Medical Management Progress Note: BPH - Patient is urinating without difficulties and postoperative period, please continue daily medication regimen with Flomax. Post-Operative Diagnosis: Same. Procedure performed 09/24: Right Total Knee Arthroplasty History/Risk Factors: as above. Clinical Indicators: Patient presented as above and is being treated POD 2 for urinary retention, Sandoval catheter inserted on 09/26. Treatment: Home meds Flomax 0.4 mg Daily, continued. Sandoval catheter inserted 09/26 for retention. What relationship, if any, exists between the diagnosis of Urinary Retention and the procedure: [ ] Urinary Retention is a complication of surgical procedure [ x ] Urinary Retention is an expected outcome of the surgical procedure [ ] Urinary Retention is related to patients co-morbid condition(s), please specify: and is not a complication of the procedure [ ] Other please specify: [ ] Unable to determine (Template Last Revised: June 2020) MTDD
--- NOTE | 2021-09-26 17:33 | P.PN ---
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 Patient is currently admitted under orthopedic surgery team status post right total knee arthroplasty completed on 09/24/[address] Bonilla. We have been consulted for continued medical management throughout patient's hospitalization. Physical exam: Patient seen and fully evaluated at bedside this morning. He is postoperative day 2 and currently reports having improvement of postoperative pain but continued urinary retention. Patient requiring placement of Sandoval catheter this morning secondary to straight catheterization 3 attempts and continued urinary retention with RN reports of greater than 800 mL showing a bladder scan. Morning labs reviewed. Vital signs stable. Patient continues to deny having any headache, lightheadedness, dizziness, chest pain, palpitations, shortness of breath, or experiencing any numbness/tingling/weakness in his extremities. Postoperative drain was removed overnight accidentally by patient. Orthopedic surgery planning to discharge patient sometime in the next 24 hours to SNF, currently awaiting insurance authorization and placement. If patient receives authorization, it is okay for patient to be transferred to SNF with Sandoval in place and follow up with urology to have voiding challenge done on outpatient basis. Vital signs reviewed and stable. General: Nontoxic, no distress and appears stated age. Derm: Skin warm and dry, normal coloration for ethnicity. Head: Atraumatic, normocephalic and symmetric. Eyes: EOMs intact, no lid lag, and anicteric sclera Mouth: no lip lesions, mucus membranes moist Cardiovascular: regular rate and rhythm with normal S1S2, no murmur, positive posterior tibial pulses bilaterally, and cap refill < 2 seconds. Lungs: Respirations even, regular, and unlabored on room air. Lungs CTA bilaterally, no rhonchi, no rales, no wheezing, and no accessory muscle usage. Abdominal: soft, nontender to palpation, no guarding, no appreciable organomegaly Ext: ROM intact (remains limited with right knee secondary to postsurgical pain). No gross muscle atrophy, no edema, no contractures, postsurgical dressing intact to right knee, drain in place, CHANDRA mikye Neuro: Speech clear, face symmetrical and CN II-XII grossly intact with no noted focal neuro deficits Psych: Alert and oriented to person, place, time, and situation. Appropriate and pleasant affect. Assessment and Plan of Care: History of glioma of the brain status post brain surgeries 3 resulting in right-sided deficits including weakness, tingling, and tremors of right upper and lower extremity Seizure disorder -Maintain seizure precautions. -Continue daily medication regimen with Keppra and Vimpat. -Fall precautions. -Safe and supportive care with assistance as needed. Postoperative urinary retention with history of BPH -Patient required straight catheterization 3 secondary to continued urinary retention during post-operative period and having greater than 800 mL of retention. Sandoval catheter was placed. -Patient to continue Flomax 0.4 mg daily. -Recommend voiding challenge in 24-48 hours, if continued urinary retention patient may be discharged with Sandoval catheter and follow up outpatient with urology for further voiding challenges secondary to retention. Leukocytosis -Likely reactive. WBCs 15.4. We will continue to monitor with repeat a.m. labs. Severe right knee osteoarthritis Status post right total knee arthroplasty -Management per primary admitting orthopedic surgery team including DVT pr ophylaxis, pain management, weightbearing, and PT/OT. -Encourage use of incentive spirometry 10-15 times hourly while awake. History of DVT -Patient was placed on DVT prophylaxis with Eliquis. Hypertension -Monitor vital signs and continue daily medication regimen with amlodipine and lisinopril. Hyperlipidemia -Continue daily medication regimen with pravastatin 20 mg nightly. BPH -Patient is urinating without difficulties and postoperative period, please continue daily medication regimen with Flomax. Thank you for allowing us to participate in the care of this pleasant patient. Do not hesitate to contact us with questions. Someone can be reached from the [facility] hospitalist group all hours of the day at [phone] or via [employer]. Objective - Vital Signs Vital signs: Vital Signs Temp 98.2 F 09/26/21 08:20 Pulse 103 H 09/26/21 08:20 Resp 18 09/26/21 08:20 BP 132/77 09/26/21 08:20 Pulse Ox 94 L 09/26/21 08:20 FiO2 Intake & Output 09/25/21 09/26/21 09/26/21 18:59 06:59 18:59 Intake Total 780 Output Total 1050 825 Balance -270 -825 Intake: Oral 780 Output: Drainage 250 Right Knee 250 Urine 800 825 Straight 825 Other: Voiding Method Toilet Toilet Diaper Diaper Incontinent Incontinent # Voids 8 0 - Labs CBC & Chem 7: 09/25/21 06:30 09/26/21 05:55 Labs: Abnormal Lab Results - Last 24 Hours (Table) 09/25/21 Range/Units 06:30 WBC 15.74 H (4.50-10.00) X 10*3/uL Immature Gran # 0.08 H (0.00-0.04) X 10*3/uL Neutrophils # 12.90 H (1.80-7.70) X 10*3/uL Monocytes # 1.16 H (0.20-1.00) X 10*3/uL Eosinophils # 0.01 L (0.04-0.35) X 10*3/uL
[2021-09-26] MEDS: lisinopriL 20 MG TAB PO SCH (19:22)
[2021-09-26] MEDS: SENNOSIDES-DOCUSATE SODIUM 1 EACH TAB PO SCH (19:22)
[2021-09-26] MEDS: amLODIPine 5 MG TAB PO SCH (19:22)
[2021-09-26] MEDS: TAMSULOSIN 0.4 MG CAP.ER.24H PO SCH (19:22)
[2021-09-26] MEDS: PRAVASTATIN SODIUM 20 MG TAB PO SCH (19:22)
[2021-09-27] MEDS: CALCIUM CARB-VIT D 500 MG-5 MCG TAB PO SCH (07:52)
[2021-09-27] MEDS: CHOLECALCIFEROL 25 MCG (1000 IU) TABLET PO SCH (07:52)
[2021-09-27] MEDS: APIXABAN 2.5 MG TABLET PO SCH ×2 (07:52→20:16)
[2021-09-27] MEDS: LACTATED RINGERS 1,000 ML IV SCH (07:53)
[2021-09-27] MEDS: LACOSAMIDE 50 MG TABLET PO SCH ×2 (07:53→21:17)
[2021-09-27] MEDS: levETIRAcetam 500 MG TAB PO SCH ×2 (07:54→21:17)
--- NOTE | 2021-09-27 10:14 | P.PN ---
Subjective Progress Note Date: 09/27/21 Principal diagnosis: Status post right total knee arthroplasty This is a 71 year-old male post right total knee arthroplasty. This is post-op day 3. The patient was evaluated at the bedside today. The patient denies nausea, vomiting, abdominal pain, shortness of breath, and chest pain this morning. He states his pain is controlled at this time. The patient has been up with physical therapy. We are awaiting evaluation by Dr. Arceo for inpatient rehab placement per 's request. Objective - Vital Signs Vital signs: Vital Signs Temp 99.3 F 09/27/21 08:00 Pulse 80 09/27/21 08:00 Resp 17 09/27/21 08:00 BP 111/70 09/27/21 08:00 Pulse Ox 96 09/27/21 08:00 FiO2 Intake & Output 09/26/21 09/27/21 09/27/21 18:59 06:59 18:59 Intake Total 540 Output Total 1650 700 Balance -1110 -700 Intake: Oral 540 Output: Urine 1650 700 Straight 1650 Other: Voiding Method Toilet Indwelling Catheter Diaper Incontinent - Exam The patient does not appear in acute distress. Alert and orientated x3. Dressing is clean dry and intact. Incision appears fine with no erythema or active drainage. Calf is soft and nontender. Good foot and ankle motion without difficulty. Sensation and circulatory status is intact. - Labs CBC & Chem 7: 09/25/21 06:30 09/26/21 05:55 Assessment and Plan (1) Osteoarthritis of right knee Current Visit: Yes Status: Acute Code(s): M17.11 - UNILATERAL PRIMARY OSTEOARTHRITIS, RIGHT KNEE SNOMED Code(s): 989386636850970 (2) Status post total right knee replacement Current Visit: Yes Status: Acute Code(s): Z96.651 - PRESENCE OF RIGHT ARTIFICIAL KNEE JOINT SNOMED Code(s): 5397407202794 Plan: 1. Continue pain control 2. Anticoagulation with Eliquis 3. Continue physical therapy and ambulation 4. Discharge pending Dr. Arceo consultation vs. subacute rehab placement.
[2021-09-27] MEDS: HYDROcodone/APAP 5-325MG 1 EACH TAB PO PRN (11:01)
[2021-09-27 11:40] LABS: Basophils # (A) 0.04 X 10*3/uL (0.00-0.10); Basophils % (A) 0.3 %; Eosinophils # (A) 0.19 X 10*3/uL (0.04-0.35); Eosinophils % (A) 1.6 %; HCT 35.6 % (39.6-50.0); HGB 12.3 g/dL (13.0-17.0); Immature Grans, Automated 0.3 %; Lymphocytes # (A) 2.46 X 10*3/uL (0.90-5.00); Lymphocytes % (A) 20.7 %; MCH 31.5 pg (27.0-32.0); MCHC 34.6 g/dL (32.0-37.0); MCV 91.3 fL (80.0-97.0); Mean Platelet Volume 10.7 fL (9.5-12.2); Monocytes # (A) 1.18 X 10*3/uL (0.20-1.00); Monocytes % (A) 9.9 %; NRBC Per 100 WBC 0 /100 WBCS (0.0-0.0); Neutrophils # (A) 7.97 X 10*3/uL (1.80-7.70); Neutrophils % (A) 67.2 %; Platelet Count 189 X 10*3/uL (140-440); RDW 12.4 % (11.5-14.5); WBC 11.88 X 10*3/uL (4.50-10.00)
[2021-09-27 11:50] LABS: African American GFR (CKD) 103.4 (60.0-200.0); Albumin 3.5 g/dL (3.8-4.9); Albumin/Globulin Ratio 1.67 (1.60-3.17); Anion Gap 10.9 mmol/L (10.00-18.00); BUN/Creat Ratio 17.38 Ratio (12.00-20.00); Blood Urea Nitrogen 13.9 mg/dL (9.0-27.0); Calcium 8.9 mg/dL (8.7-10.3); Carbon Dioxide 25.1 mmol/L (20.0-27.5); Globulin 2.1 g/dL (1.6-3.3); Non-African American GFR(CKD) 89.2 (60.0-200.0); Potassium 4.1 mmol/L (3.5-5.5); Total Bilirubin 0.7 mg/dL (0.30-1.20); Total Protein 5.6 g/dL (6.2-8.2)
[2021-09-27] MEDS: polyethylene glycoL 3350 17 GM POWD.PACK PO SCH (13:17)
--- NOTE | 2021-09-27 14:29 | P.PN ---
Subjective Progress Note Date: 09/27/21 Principal diagnosis: s/p knee surgery This is a 71 year-old male post right total knee arthroplasty. This is post-op day 3. He states his pain is controlled at this time. The patient has been up with physical therapy. Patient has not had any bowel movement for the past 2 days. He also still has urinary catheter in place. Denied chest pain or shortness of breath. No fevers or chills. Objective - Vital Signs Vital signs: Vital Signs Temp 99.3 F 09/27/21 08:00 Pulse 80 09/27/21 08:00 Resp 17 09/27/21 08:00 BP 111/70 09/27/21 08:00 Pulse Ox 96 09/27/21 08:00 FiO2 Intake & Output 09/26/21 09/27/21 09/27/21 18:59 06:59 18:59 Intake Total 540 Output Total 1650 700 500 Balance -1110 -700 -500 Intake: Oral 540 Output: Urine 1650 700 500 Straight 1650 500 Other: Voiding Method Toilet Indwelling Catheter Diaper Incontinent - Exam Constitutional: No acute distress, conversant, pleasant Eyes:Anicteric sclerae, moist conjunctiva, no lid-lag, PERRLA, ENMT: Oropharynx clear, no erythema, exudates Neck: Supple, FROM, no masses, or JVD, No carotid bruits, No thyromegaly Lungs: Clear to auscultation, Clear to percussion, Normal respiratory effort, no accessory muscle use Cardiovascular: Heart regular in rate and rhythm, No murmurs, gallops, or rubs, No peripheral edema Abdominal: Soft, Nontender, no guarding, rebound or rigidity, Normoactive bowel sounds, No hepatomegaly, No splenomegaly, No palpable mass Skin: Normal temperature, tone, texture, turgor, no induration, No subcutaneous nodules, No rash, lesions, No ulcers Extremities: Right knee surgical dressing. No digital cyanosis, No clubbing, Pedal pulses intact and symmetrical, Radial pulses intact and symmetrical, No calf tenderness Psychiatric: Alert and oriented to person, place and time, appropriate affect, intact judgement Neuro: Muscles Strength 5/5 in all 4 extremities, Sensation to light touch gr ossly present throughout, Cranial nerves II-XII grossly intact, no focal sensory deficits - Labs CBC & Chem 7: 09/27/21 07:43 09/27/21 07:43 Labs: Abnormal Lab Results - Last 24 Hours (Table) 09/27/21 09/27/21 Range/Units 07:43 07:43 WBC 11.88 H (4.50-10.00) X 10*3/uL RBC 3.90 L (4.40-5.60) X 10*6/uL Hgb 12.3 L (13.0-17.0) g/dL Hct 35.6 L (39.6-50.0) % Neutrophils # 7.97 H (1.80-7.70) X 10*3/uL Monocytes # 1.18 H (0.20-1.00) X 10*3/uL Alkaline Phosphatase 40 L (41-126) U/L Total Protein 5.6 L (6.2-8.2) g/dL Albumin 3.5 L (3.8-4.9) g/dL Assessment and Plan Plan: History of glioma of the brain status post brain surgeries 3 resulting in right-sided deficits including weakness, tingling, and tremors of right upper and lower extremity Seizure disorder -Maintain seizure precautions. -Continue daily medication regimen with Keppra and Vimpat. -Fall precautions. -Safe and supportive care with assistance as needed. Postoperative urinary retention with history of BPH -Patient required straight catheterization 3 secondary to continued urinary retention during post-operative period and having greater than 800 mL of retention. Thakur catheter was placed. -Patient to continue Flomax 0.4 mg daily. -Voiding challenge today, d/c thakur and see if he was able to voide. Constipation -Laxatives Leukocytosis -Likely reactive. Severe right knee osteoarthritis Status post right total knee arthroplasty -Management per primary admitting orthopedic surgery team including DVT prophylaxis, pain management, weightbearing, and PT/OT. -Encourage use of incentive spirometry 10-15 times hourly while awake. History of DVT -Patient was placed on DVT prophylaxis with Eliquis. Hypertension -Monitor vital signs and continue daily medication regimen with amlodipine and lisinopril. Hyperlipidemia -Continue daily medication regimen with pravastatin 20 mg nightly. BPH -Patient is urinating without difficulties and postoperative period, please continue daily medication regimen with Flomax. We are awaiting evaluation by Dr. Arceo for inpatient rehab placement per 's request.
[2021-09-27] MEDS: amLODIPine 5 MG TAB PO SCH (19:21)
[2021-09-27] MEDS: lisinopriL 20 MG TAB PO SCH (19:21)
[2021-09-27] MEDS: PRAVASTATIN SODIUM 20 MG TAB PO SCH (19:21)
[2021-09-27] MEDS: TAMSULOSIN 0.4 MG CAP.ER.24H PO SCH (19:21)
[2021-09-27] MEDS: SENNOSIDES-DOCUSATE SODIUM 1 EACH TAB PO SCH (20:16)
[2021-09-28] MEDS: CALCIUM CARB-VIT D 500 MG-5 MCG TAB PO SCH (07:31)
[2021-09-28] MEDS: LACOSAMIDE 50 MG TABLET PO SCH ×2 (07:32→20:47)
[2021-09-28] MEDS: APIXABAN 2.5 MG TABLET PO SCH ×2 (07:32→20:47)
[2021-09-28] MEDS: polyethylene glycoL 3350 17 GM POWD.PACK PO SCH (07:32)
[2021-09-28] MEDS: CHOLECALCIFEROL 25 MCG (1000 IU) TABLET PO SCH (07:32)
[2021-09-28] MEDS: LACTATED RINGERS 1,000 ML IV SCH (07:33)
[2021-09-28] MEDS: levETIRAcetam 500 MG TAB PO SCH ×2 (07:33→20:48)
--- NOTE | 2021-09-28 09:13 | P.PN ---
Subjective Progress Note Date: 09/28/21 Principal diagnosis: Status post right total knee arthroplasty This is a 71 year-old male post right total knee arthroplasty. This is post-op day 4. The patient was evaluated at the bedside today. The patient denies nausea, vomiting, abdominal pain, shortness of breath, and chest pain this morning. He states his pain is controlled at this time. The patient has been up with physical therapy. We are awaiting evaluation by Dr. Arceo for inpatient rehab placement per 's request. Objective - Vital Signs Vital signs: Vital Signs Temp 98.2 F 09/28/21 08:00 Pulse 82 09/28/21 08:00 Resp 18 09/28/21 08:00 BP 115/73 09/28/21 08:00 Pulse Ox 95 09/28/21 08:00 FiO2 Intake & Output 09/27/21 09/28/21 09/28/21 18:59 06:59 18:59 Output Total 500 2900 Balance -500 -2900 Output: Urine 500 2900 Straight 500 Other: Voiding Method Indwelling Catheter Indwelling Catheter # Bowel Movements 1 - Exam The patient does not appear in acute distress. Alert and orientated x3. Dressing is clean dry and intact. Incision appears fine with no erythema or active drainage. Calf is soft and nontender. Good foot and ankle motion without difficulty. Sensation and circulatory status is intact. - Labs CBC & Chem 7: 09/27/21 07:43 09/27/21 07:43 Labs: Abnormal Lab Results - Last 24 Hours (Table) 09/27/21 09/27/21 Range/Units 07:43 07:43 WBC 11.88 H (4.50-10.00) X 10*3/uL RBC 3.90 L (4.40-5.60) X 10*6/uL Hgb 12.3 L (13.0-17.0) g/dL Hct 35.6 L (39.6-50.0) % Neutrophils # 7.97 H (1.80-7.70) X 10*3/uL Monocytes # 1.18 H (0.20-1.00) X 10*3/uL Alkaline Phosphatase 40 L (41-126) U/L Total Protein 5.6 L (6.2-8.2) g/dL Albumin 3.5 L (3.8-4.9) g/dL Assessment and Plan (1) Osteoarthritis of right knee Current Visit: Yes Status: Acute Code(s): M17.11 - UNILATERAL PRIMARY OSTEOARTHRITIS, RIGHT KNEE SNOMED Code(s): 896791262760402 (2) Status post total right knee replacement Current Visit: Yes Status: Acute Code(s): Z96.651 - PRESENCE OF RIGHT ARTIFICIAL KNEE JOINT SNOMED Code(s): 3625010301923 Plan: 1. Continue pain control 2. Anticoagulation with Eliquis 3. Continue physical therapy and ambulation 4. Discharge pending Dr. Arceo consultation vs. subacute rehab placement.
[2021-09-28] MEDS: HYDROcodone/APAP 5-325MG 1 EACH TAB PO PRN ×2 (10:27→20:47)
--- NOTE | 2021-09-28 12:01 | P.PN ---
Subjective Progress Note Date: 09/28/21 Principal diagnosis: s/p knee surgery Patient failed spontaneous voiding done yesterday, Thakur was reinserted back in. He did have a bowel movement however. He is currently working with physical therapy. Objective - Vital Signs Vital signs: Vital Signs Temp 98.2 F 09/28/21 08:00 Pulse 82 09/28/21 08:00 Resp 18 09/28/21 08:00 BP 115/73 09/28/21 08:00 Pulse Ox 95 09/28/21 08:00 FiO2 Intake & Output 09/27/21 09/28/21 09/28/21 18:59 06:59 18:59 Output Total 500 2900 Balance -500 -2900 Output: Urine 500 2900 Straight 500 Other: Voiding Method Indwelling Catheter Indwelling Catheter # Bowel Movements 1 - Exam Constitutional: No acute distress, conversant, pleasant Eyes:Anicteric sclerae, moist conjunctiva, no lid-lag, PERRLA, ENMT: Oropharynx clear, no erythema, exudates Neck: Supple, FROM, no masses, or JVD, No carotid bruits, No thyromegaly Lungs: Clear to auscultation, Clear to percussion, Normal respiratory effort, no accessory muscle use Cardiovascular: Heart regular in rate and rhythm, No murmurs, gallops, or rubs, No peripheral edema Abdominal: Soft, Nontender, no guarding, rebound or rigidity, Normoactive bowel sounds, No hepatomegaly, No splenomegaly, No palpable mass Skin: Normal temperature, tone, texture, turgor, no induration, No subcutaneous nodules, No rash, lesions, No ulcers Extremities: Right knee surgical dressing. 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 -Continue daily medication regimen with Keppra and Vimpat. -Fall precautions. -Safe and supportive care with assistance as needed. Postoperative urinary retention with history of BPH -Patient required straight catheterization 3 secondary to continued urinary re tention during post-operative period and having greater than 800 mL of retention. Thakur catheter was placed. -Flomax 0.4 mg daily. -Voiding challenge failed 09/27, thakur reinserted, will need outpatient urology follow up. Constipation -Laxatives Leukocytosis -Likely reactive. Severe right knee osteoarthritis Status post right total knee arthroplasty -Management per primary admitting orthopedic surgery team including DVT prophylaxis, pain management, weightbearing, and PT/OT. -Encourage use of incentive spirometry 10-15 times hourly while awake. History of DVT -Patient was placed on DVT prophylaxis with Eliquis. Hypertension -Monitor vital signs and continue daily medication regimen with amlodipine and lisinopril. Hyperlipidemia -Continue daily medication regimen with pravastatin 20 mg nightly. BPH -Patient is urinating without difficulties and postoperative period, please cont inue daily medication regimen with Flomax. We are awaiting evaluation by Dr. Arceo for inpatient rehab placement per 's request.
[2021-09-28] MEDS: amLODIPine 5 MG TAB PO SCH (19:06)
[2021-09-28] MEDS: lisinopriL 20 MG TAB PO SCH (19:06)
[2021-09-28] MEDS: PRAVASTATIN SODIUM 20 MG TAB PO SCH (19:06)
[2021-09-28] MEDS: TAMSULOSIN 0.4 MG CAP.ER.24H PO SCH (19:06)
[2021-09-28] MEDS: SENNOSIDES-DOCUSATE SODIUM 1 EACH TAB PO SCH (20:47)
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
[2021-09-29] MEDS: levETIRAcetam 500 MG TAB PO SCH ×2 (08:08→19:44)
[2021-09-29] MEDS: CHOLECALCIFEROL 25 MCG (1000 IU) TABLET PO SCH (08:08)
[2021-09-29] MEDS: LACOSAMIDE 50 MG TABLET PO SCH ×2 (08:08→19:43)
[2021-09-29] MEDS: polyethylene glycoL 3350 17 GM POWD.PACK PO SCH (08:09)
[2021-09-29] MEDS: HYDROcodone/APAP 5-325MG 1 EACH TAB PO PRN (08:09)
[2021-09-29] MEDS: LACTATED RINGERS 1,000 ML IV SCH (08:09)
[2021-09-29] MEDS: APIXABAN 2.5 MG TABLET PO SCH ×2 (08:09→19:44)
[2021-09-29] MEDS: CALCIUM CARB-VIT D 500 MG-5 MCG TAB PO SCH (08:09)
--- NOTE | 2021-09-29 11:31 | P.PN ---
Subjective Progress Note Date: 09/29/21 Principal diagnosis: s/p knee surgery Doing well. No complaints today other than his knee. Pain is tolerable however. No fevers. No chest pain or sob. Objective - Vital Signs Vital signs: Vital Signs Temp 98.7 F 09/29/21 07:28 Pulse 69 09/29/21 07:28 Resp 20 09/29/21 07:28 BP 122/73 09/29/21 07:28 Pulse Ox 95 09/29/21 07:28 FiO2 Intake & Output 09/28/21 09/29/21 09/29/21 18:59 06:59 18:59 Output Total 720 1100 375 Balance -720 -1100 -375 Output: Urine 720 1100 375 Other: Voiding Method Indwelling Catheter Indwelling Catheter - Exam Constitutional: No acute distress, conversant, pleasant Eyes:Anicteric sclerae, moist conjunctiva, no lid-lag, PERRLA, ENMT: Oropharynx clear, no erythema, exudates Neck: Supple, FROM, no masses, or JVD, No carotid bruits, No thyromegaly Lungs: Clear to auscultation, Clear to percussion, Normal respiratory effort, no accessory muscle use Cardiovascular: Heart regular in rate and rhythm, No murmurs, gallops, or rubs, No peripheral edema Abdominal: Soft, Nontender, no guarding, rebound or rigidity, Normoactive bowel sounds, No hepatomegaly, No splenomegaly, No palpable mass Skin: Normal temperature, tone, texture, turgor, no induration, No subcutaneous nodules, No rash, lesions, No ulcers Extremities: Right knee surgical dressing. 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 -Continue daily medication regimen with Keppra and Vimpat. -Fall precautions. -Safe and supportive care with assistance as needed. Postoperative urinary retention with history of BPH -Patient required straight catheterization 3 secondary to continued urinary retention during post-operative period and having greater than 800 mL of retention. Thakur catheter was placed. -Flomax 0.4 mg daily. -Voiding challenge failed 09/27, thakur reinserted, will need outpatient urology follow up. Constipation -Laxatives Leukocytosis -Likely reactive. Severe right knee osteoarthritis Status post right total knee arthroplasty -Management per primary admitting orthopedic surgery team including DVT prophylaxis, pain management, weightbearing, and PT/OT. -Encourage use of incentive spirometry 10-15 times hourly while awake. History of DVT -Patient was placed on DVT prophylaxis with Eliquis. Hypertension -Monitor vital signs and continue daily medication regimen with amlodipine and lisinopril. Hyperlipidemia -Continue daily medication regimen with pravastatin 20 mg nightly. BPH -Patient is urinating without difficulties and postoperative period, please continue daily medication regimen with Flomax. Pending placement
--- NOTE | 2021-09-29 17:13 | P.PN ---
Subjective Progress Note Date: 09/29/21 This patient is a 71- year old male who is status-post right total knee arthroplasty on 09/24/21. Today is postoperative day #5. The patient is seen and examined bedside. Pain in the right knee is well-controlled. He has been working with physical therapy. Dr. Arceo was consulted per 's request for possible discharge to inpatient rehab, although Dr. Arceo believes inpatient rehab is not appropriate for this patient. Case management is working on discharge to [facility]. Patient denies chest pain, shortness of breath, nausea, vomiting. Vital signs stable. Objective - Vital Signs Vital signs: Vital Signs Temp 97.5 F L 09/29/21 13:57 Pulse 85 09/29/21 13:57 Resp 20 09/29/21 13:57 BP 134/76 09/29/21 13:57 Pulse Ox 96 09/29/21 13:57 FiO2 Intake & Output 09/28/21 09/29/21 09/29/21 18:59 06:59 18:59 Output Total 720 1100 375 Balance -720 -1100 -375 Output: Urine 720 1100 375 Other: Voiding Method Indwelling Catheter Indwelling Catheter Indwelling Catheter - Exam On examination, the patient is sitting up in bed in no apparent distress. He is alert and oriented 3. On inspection of the right knee, there is a clean, dry, intact OpSite surgical dressing in place. There is no bleeding or drainage to the dressing. There is mild knee swelling. Hemovac drain has been removed. Patient has good strength and range of motion of the right ankle and toes. Motor and sensory function is intact of the right lower extremity. Dorsalis pedis pulses easily palpable, the right lower extremity is warm and well perfused with brisk capillary refill distally. Calf is soft and nontender to palpation. - Labs CBC & Chem 7: 09/27/21 07:43 09/27/21 07:43 Assessment and Plan Assessment: Status-post right total knee arthroplasty on 09/24/21. Post-operative day #5. Plan: - Weight-bear as tolerated on right lower extremity with a walker. Up with assistance. - Physical therapy for gait and balance training. - Keep surgical dressing in place. - Pain management as needed. - Eliquis for DVT prophylaxis, as patient has history of DVT in 2017. - Internal medicine for millicent-operative medical management. - [facility], pending medical clearance.
[2021-09-29] MEDS: TAMSULOSIN 0.4 MG CAP.ER.24H PO SCH (19:43)
[2021-09-29] MEDS: SENNOSIDES-DOCUSATE SODIUM 1 EACH TAB PO SCH (19:43)
[2021-09-29] MEDS: lisinopriL 20 MG TAB PO SCH (19:44)
[2021-09-29] MEDS: amLODIPine 5 MG TAB PO SCH (19:44)
[2021-09-29] MEDS: PRAVASTATIN SODIUM 20 MG TAB PO SCH (19:44)
--- NOTE | 2021-09-30 07:14 | P.PN ---
Progress Note - Text My consultation has typo in conclusion. I was under impression that discharge planning to SNF was already underway, not stent placement.
[2021-09-30 08:04] VITALS: BP 154/76; PULSE 91; RESP 18; TEMP 98.3
[2021-09-30] MEDS: APIXABAN 2.5 MG TABLET PO SCH (08:16)
[2021-09-30] MEDS: CALCIUM CARB-VIT D 500 MG-5 MCG TAB PO SCH (08:16)
[2021-09-30] MEDS: CHOLECALCIFEROL 25 MCG (1000 IU) TABLET PO SCH (08:17)
[2021-09-30] MEDS: LACTATED RINGERS 1,000 ML IV SCH (08:32)
[2021-09-30] MEDS: polyethylene glycoL 3350 17 GM POWD.PACK PO SCH (08:32)
--- NOTE | 2021-09-30 11:12 | P.DS ---
Providers Date of admission: 09/25/21 14:50 Expected date of discharge: 09/30/21 Attending physician: Dajuan Bonilla Consults: 09/24/21 15:46 Consult Physician Routine Consulting Provider: Abida Ordonez Consult Reason/Comments: medical managemnent Do you want consulting provider notified?: Yes 09/26/21 15:21 Consult Physician Routine Consulting Provider: Landry Arceo Consult Reason/Comments: in patient rehab Do you want consulting provider notified?: Yes Primary care physician: Matthew Chiu MD Hospital Course: This is a 71-year-old male who was last seen with complaint of continued right knee pain. The patient has a known history of degenerative arthritis of the right knee and presents to discuss surgical options. After discussion and consideration the patient elects to proceed with right total knee arthroplasty. The patient is seen preoperatively by Dr. Chiu and cardiology, and cleared for surgery. Patient underwent a right total knee arthroplasty on 09/24/21. The patient is admitted to [facility] for total right knee arthroplasty. The procedures performed without complication or sequelae. Patient is doing well postoperatively. Vital signs are stable at discharge. Labs are stable at discharge. Patient is examined bedside this morning. He states the pain in his right knee is well-controlled at this time. He is up to the bedside chair. He is ambulating with a walker. He states he otherwise feels well and denies chest pain, shortness breath, nausea, vomiting, fevers, chills. No complaints today d ischarge. On examination, the patient is sitting up in the bedside chair in no apparent distress. He is alert and oriented 3. On inspection of the right knee, there is a clean, dry, intact OpSite surgical dressing in place. No bleeding or drainage through the dressing. Mild swelling of the knee. Motor and sensory function is intact of the right lower extremity. Dorsalis pedis pulses easily palpable, the right lower extremity is warm and well-perfused. Nontender to palpation. The patient is discharged to subacute rehab on postop day #6, pending medical clearance. Please see orders and refer to the med rec for accurate list of medications. Plan - Discharge Summary Discharge Rx Participant: Yes New Discharge Prescriptions: New Docusate [Colace] 100 mg PO BID #60 capsule Omeprazole 40 mg PO DAILY 30 Days #30 cap HYDROcodone/APAP 5-325MG [Abie 5-325] 1 - 2 tab PO Q6HR PRN #40 tab PRN Reason: Pain Apixaban [Eliquis] 2.5 mg PO BID 30 Days #60 tab No Action Cholecalciferol [Vitamin D3] 2,000 unit PO DAILY Tamsulosin HCl [Flomax] 0.4 mg PO DAILY@1900 Pravastatin Sodium [Pravachol] 20 mg PO DAILY@1900 amLODIPine [Norvasc] 5 mg PO DAILY@1900 Benazepril HCl 20 mg PO DAILY@1900 Lacosamide [Vimpat] 200 mg PO DAILY@1000,2200 levETIRAcetam [Keppra] 500 mg PO DAILY@1000,2200 Aspirin [Adult Low Dose Aspirin EC] 81 mg PO Q12H Lacosamide [Vimpat] 50 mg PO DAILY@1000,2200 Calcium Carbonate/Vitamin D3 [Calcium 600 mg-D3 20 mcg (800 unit)] 1 each PO DAILY B-Complex with Vitamin C 1 each PO DAILY Discharge Medication List Benazepril HCl 20 mg PO DAILY@189911/08/16 [History] Cholecalciferol [Vitamin D3] 2,000 unit PO DAILY 11/08/16 [History] Pravastatin Sodium [Pravachol] 20 mg PO DAILY@189911/08/16 [History] Tamsulosin HCl [Flomax] 0.4 mg PO DAILY@189911/08/16 [History] amLODIPine [Norvasc] 5 mg PO DAILY@189911/08/16 [History] Aspirin [Adult Low Dose Aspirin EC] 81 mg PO Q12H 02/04/21 [History] levETIRAcetam [Keppra] 500 mg PO DAILY@1000,2200 02/04/21 [History] B-Complex with Vitamin C 1 each PO DAILY 09/22/21 [History] Calcium Carbonate/Vitamin D3 [Calcium 600 mg-D3 20 mcg (800 unit)] 1 each PO DAILY 09/22/21 [History] Lacosamide [Vimpat] 50 mg PO DAILY@1000,2200 09/22/21 [History] Lacosamide [Vimpat] 200 mg PO DAILY@1000,219909/22/21 [History] HYDROcodone/APAP 5-325MG [Abie 5-325] 1 - 2 tab PO Q6HR PRN #40 tab 09/25/21 [Rx] Apixaban [Eliquis] 2.5 mg PO BID 30 Days #60 tab 09/26/21 [Rx] Docusate [Colace] 100 mg PO BID #60 capsule 09/26/21 [Rx] Omeprazole 40 mg PO DAILY 30 Days #30 cap 09/26/21 [Rx] Follow up Appointment(s)/Referral(s): Dajuan Bonilla MD [Medical Doctor] - 10/09/21 10:30 am Activity/Diet/Wound Care/Special Instructions: Weight bear as tolerated on operative extremity with a walker. Keep operative dressing intact until follow-up appointment. Call the office if your dressing becomes saturated or falls off. Take pain medications as prescribed. Take Eliquis as prescribed x 4 weeks for blood clot prevention. Follow-up in the office in two weeks with Dr. Bonilla. Call the office with any questions or concerns, Discharge Disposition: TRANSFER TO SNF/ECF
--- NOTE | 2021-09-30 11:12 | P.PN ---
Subjective Progress Note Date: 09/30/21 Principal diagnosis: s/p knee surgery Seen this am, no new complaints. Doing well. Still with knee pain. Objective - Vital Signs Vital signs: Vital Signs Temp 98.3 F 09/30/21 08:00 Pulse 91 09/30/21 08:00 Resp 18 09/30/21 08:00 BP 154/76 09/30/21 08:00 Pulse Ox 92 L 09/30/21 08:00 FiO2 Intake & Output 09/29/21 09/30/21 09/30/21 18:59 06:59 18:59 Intake Total 800 Output Total 675 950 Balance 125 -950 Intake: Oral 800 Output: Urine 675 950 Other: Voiding Method Indwelling Catheter Indwelling Catheter - Exam Constitutional: No acute distress, conversant, pleasant Eyes:Anicteric sclerae, moist conjunctiva, no lid-lag, PERRLA, ENMT: Oropharynx clear, no erythema, exudates Neck: Supple, FROM, no masses, or JVD, No carotid bruits, No thyromegaly Lungs: Clear to auscultation, Clear to percussion, Normal respiratory effort, no accessory muscle use Cardiovascular: Heart regular in rate and rhythm, No murmurs, gallops, or rubs, No peripheral edema Abdominal: Soft, Nontender, no guarding, rebound or rigidity, Normoactive bowel sounds, No hepatomegaly, No splenomegaly, No palpable mass Skin: Normal temperature, tone, texture, turgor, no induration, No subcutaneous nodules, No rash, lesions, No ulcers Extremities: Right knee surgical dressing. 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 -Continue daily medication regimen with Keppra and Vimpat. -Fall precautions. -Safe and supportive care with assistance as needed. Postoperative urinary retention with history of BPH -Patient required straight catheterization 3 secondary to continued urinary ret ention during post-operative period and having greater than 800 mL of retention. Thakur catheter was placed. -Flomax 0.4 mg daily. -Voiding challenge failed 09/27, thakur reinserted, will need outpatient urology follow up. Constipation -Laxatives Leukocytosis -Likely reactive. Severe right knee osteoarthritis Status post right total knee arthroplasty -Management per primary admitting orthopedic surgery team including DVT prophylaxis, pain management, weightbearing, and PT/OT. -Encourage use of incentive spirometry 10-15 times hourly while awake. History of DVT -Patient was placed on DVT prophylaxis with Eliquis. Hypertension -Monitor vital signs and continue daily medication regimen with amlodipine and lisinopril. Hyperlipidemia -Continue daily medication regimen with pravastatin 20 mg nightly. BPH -Patient is urinating without difficulties and postoperative period, please continue daily medication regimen with Flomax. Patient going to rehab today.
[2021-09-30] MEDS: levETIRAcetam 500 MG TAB PO SCH (11:42)
[2021-09-30] MEDS: LACOSAMIDE 50 MG TABLET PO SCH (11:42)
[2021-09-30] MEDS: HYDROcodone/APAP 5-325MG 1 EACH TAB PO PRN (11:50)
== END 2021-09-30 14:03 | DRG 470 ==
LOC: OR 11:18 → 4SSUR 16:30 → OR 09-25 14:50
PROVIDERS: ADMIT Orthopaedic Surgery; ATTEND Orthopaedic Surgery
PROC: 0SRC0J9 Replacement of Right Knee Joint with Synthetic Substitute, Cemented, Open Approach (ICD-10-PCS; principal; 2021-09-25)
PROC: 8E0Y0CZ Robotic Assisted Procedure of Lower Extremity, Open Approach (ICD-10-PCS; 2021-09-25)
DX: M17.11 Unilateral primary osteoarthritis, right knee (principal); R47.01 Aphasia; D33.2 Benign neoplasm of brain, unspecified; E78.5 Hyperlipidemia, unspecified; G40.909 Epilepsy, unspecified, not intractable, without status epilepticus; I10 Essential (primary) hypertension; R25.1 Tremor, unspecified; I25.10 Atherosclerotic heart disease of native coronary artery without angina pectoris; N40.1 Benign prostatic hyperplasia with lower urinary tract symptoms; R33.8 Other retention of urine; Z74.1 Need for assistance with personal care; Z79.01 Long term (current) use of anticoagulants; Z79.82 Long term (current) use of aspirin; Z79.899 Other long term (current) drug therapy; Z86.011 Personal history of benign neoplasm of the brain; Z86.718 Personal history of other venous thrombosis and embolism; Z87.891 Personal history of nicotine dependence; Z98.890 Other specified postprocedural states; Z87.828 Personal history of other (healed) physical injury and trauma
CPT/HCPCS: 64447; 64999; 76942; 80053; 83735; 85025

== ENCOUNTER → 2021-11-06 | Outpatient (CLI) | payer MEDICARE ==
--- NOTE | 2021-11-06 16:25 | US ---
EXAMINATION TYPE: US venous doppler duplex LE RT DATE OF EXAM: 11/06/2021 3:08 PM COMPARISON: NONE CLINICAL HISTORY: 71-year-old male I80.9 PHLEBITIS AND THROMBOPHLEBITIS. RIGHT total knee in September, ll since then SIDE PERFORMED: Right TECHNIQUE: The lower extremity deep venous system is examined utilizing real time linear array sonog soo with graded compression, doppler sonography and color-flow sonography. FINDINGS: VESSELS IMAGED: Common Femoral Vein Deep Femoral Vein Greater Saphenous Vein * Femoral Vein Popliteal Vein Small Saphenous Vein * Proximal Calf Veins Peroneal veins Posterior tibial veins (* superficial vessels) Right Leg: Negative for DVT [employer] notes: left voicemail on Dr. Bonilla's cell phone IMPRESSION: No evidence for DVT within the right lower extremity.
== END | disposition home or self-care (01) ==
LOC: RADUSWWP 14:37
PROVIDERS: ATTEND Orthopaedic Surgery
DX: M25.561 Pain in right knee (principal); R26.89 Other abnormalities of gait and mobility; I80.9 Phlebitis and thrombophlebitis of unspecified site; Z96.651 Presence of right artificial knee joint; Z47.1 Aftercare following joint replacement surgery

== ENCOUNTER 2021-12-13 13:18 | Emergency (ER) | payer MEDICARE ==
[2021-12-13 14:14] VITALS: BP 144/75; PULSE 90; RESP 20; TEMP 97.8
--- NOTE | 2021-12-13 15:36 | ED ---
Male Urogenital HPI - General Chief complaint: Urogenital Stated complaint: catheter problem Time Seen by Provider: 12/13/21 14:52 Source: patient Mode of arrival: wheelchair Limitations: no limitations - History of Present Illness Initial comments: This patient is 71-year-old man here to have evaluation of abdomen and genital pain. Patient states that he had a Sandoval catheter that was placed by visiting nurse yesterday. He has been having urinary retention going back a number of months since he had a procedure that caused him to develop urinary retention. The patient states that the catheter that was used yesterday had a larger than usual balloon. He also notes that the catheter seems to have stopped draining. Yesterday during placement there had been some blood but it hadn't then been running with clear yellow urine they have not noted any recent urine drainage. MD Complaint: other -: hour(s) Location: penis, abdomen Radiation: none Severity: moderate Quality: aching Consistency: constant Improves with: none Worsens with: none indwelling catheter Reports: urinary retention - Related Data Home Medications Medication Instructions Recorded Confirmed Benazepril HCl 20 mg PO DAILY@189911/08/16 09/22/21 Cholecalciferol [Vitamin D3 (25 2,000 unit PO DAILY 11/08/16 09/22/21 Mcg = 1000 Iu)] Pravastatin Sodium [Pravachol] 20 mg PO DAILY@189911/08/16 09/22/21 Tamsulosin HCl [Flomax] 0.4 mg PO DAILY@189911/08/16 09/22/21 amLODIPine [Norvasc] 5 mg PO DAILY@189911/08/16 09/22/21 Aspirin [Adult Low Dose Aspirin EC] 81 mg PO Q12H 02/04/21 09/22/21 levETIRAcetam [Keppra] 500 mg PO DAILY@1000,219902/04/21 09/22/21 B-Complex with Vitamin C 1 each PO DAILY 09/22/21 09/22/21 Calcium Carbonate/Vitamin D3 1 each PO DAILY 09/22/21 09/22/21 [Calcium 600 mg-D3 20 mcg (800 unit)] Lacosamide [Vimpat] 50 mg PO DAILY@1000,2200 09/22/21 09/22/21 Lacosamide [Vimpat] 200 mg PO DAILY@1000,2200 09/22/21 09/22/21 Previous Rx's Medication Instructions Recorded HYDROcodone/APAP 5-325MG [[place] 1 - 2 tab PO Q6HR PRN #40 tab 09/25/21 5-325] Apixaban [Eliquis] 2.5 mg PO BID 30 Days #60 tab 09/26/21 Docusate [Colace] 100 mg PO BID #60 capsule 09/26/21 Omeprazole 40 mg PO DAILY 30 Days #30 cap 09/26/21 Allergies Allergy/AdvReac Type Severity Reaction Status Date / Time No Known Allergies Allergy Verified 12/13/21 14:13 Review of Systems ROS Statement: Those systems with pertinent positive or pertinent negative responses have been documented in the HPI. ROS Other: All systems not noted in ROS Statement are negative. Constitutional: Denies: fever, chills Respiratory: Denies: cough, dyspnea Cardiovascular: Denies: chest pain, palpitations, edema Gastrointestinal: Reports: as per HPI, abdominal pain. Denies: nausea, vomiting, diarrhea, constipation Genitourinary: Reports: as per HPI. Denies: testicular pain, testicular mass Musculoskeletal: Denies: back pain Skin: Denies: rash Past Medical History Past Medical History: Cancer, Deep Vein Thrombosis (DVT), Hypertension, Prostate Disorder Additional Past Medical History / Comment(s): glioma History of Any Multi-Drug Resistant Organisms: None Reported Past Surgical History: Orthopedic Surgery Additional Past Surgical History / Comment(s): brain surgery, neck surgery Past Anesthesia/Blood Transfusion Reactions: No Reported Reaction, Motion Sickness Past Psychological History: No Psychological Hx Reported Smoking Status: Former smoker Past Alcohol Use History: None Reported Past Drug Use History: None Reported - Past Family History Mother Family Medical History: No Reported History General Exam Limitations: no limitations General appearance: alert, in no apparent distress Head exam: Present: atraumatic, normocephalic Respiratory exam: Present: normal lung sounds bilaterally. Absent: respiratory distress, wheezes, rales, rhonchi, stridor Cardiovascular Exam: Present: regular rate, normal rhythm, normal heart sounds. Absent: systolic murmur, diastolic murmur, rubs, gallop GI/Abdominal exam: Present: soft, tenderness, guarding, other (Patient has suprapubic fullness, with some tenderness and guarding consistent with distended bladder). Absent: distended, rebound, rigid, mass exam: Present: normal inspection, other (There is catheter present, no blood at urethral meatus) Extremities exam: Present: normal inspection, normal capillary refill. Absent: pedal edema, calf tenderness Back exam: Present: normal inspection. Absent: CVA tenderness (R), CVA tenderness (L) Skin exam: Present: warm, dry, intact. Absent: normal color, rash Course Vital Signs 12/13/21 14:08 Temperature 97.8 F Pulse Rate 90 Respiratory 20 Rate Blood Pressure 144/75 O2 Sat by Pulse 95 Oximetry Disposition Clinical Impression: Sandoval catheter problem Disposition: HOME SELF-CARE Condition: Good Instructions (If sedation given, give patient instructions): Sandoval Catheter Placement and Care (ED) Is patient prescribed a controlled substance at d/c from ED?: No Referrals: Nj Briseno MD [Primary Care Provider] - 1-2 days
== END 2021-12-13 17:18 | disposition home or self-care (01) ==
LOC: EC 13:18
DX: T83.091A Other mechanical complication of indwelling urethral catheter, initial encounter (principal); I10 Essential (primary) hypertension; Z86.718 Personal history of other venous thrombosis and embolism; Z87.891 Personal history of nicotine dependence; Z79.899 Other long term (current) drug therapy; Y84.6 Urinary catheterization as the cause of abnormal reaction of the patient, or of later complication, without mention of misadventure at the time of the procedure
CPT/HCPCS: 99283

== ENCOUNTER → 2022-01-16 | Outpatient (CLI) | payer MEDICARE ==
[2022-01-16 18:36] LABS: African American GFR (CKD) 99.6 (60.0-200.0); Albumin 4.2 g/dL (3.8-4.9); Albumin/Globulin Ratio 1.47 (1.60-3.17); Anion Gap 6.9 mmol/L (10.00-18.00); BUN/Creat Ratio 23.49 Ratio (12.00-20.00); Blood Urea Nitrogen 20.6 mg/dL (9.0-27.0); Calcium 9.4 mg/dL (8.7-10.3); Carbon Dioxide 30.2 mmol/L (20.0-27.5); Globulin 2.9 g/dL (1.6-3.3); Non-African American GFR(CKD) 85.9 (60.0-200.0); Potassium 4.5 mmol/L (3.5-5.5); Total Bilirubin 0.4 mg/dL (0.30-1.20); Total Protein 7.1 g/dL (6.2-8.2)
[2022-01-16 18:54] LABS: Basophils # (A) 0.04 X 10*3/uL (0.00-0.10); Basophils % (A) 0.6 %; Eosinophils % (A) 1.4 %; HCT 42.4 % (39.6-50.0); HGB 14.7 g/dL (13.0-17.0); Immature Grans, Automated 0.3 %; Lymphocytes % (A) 31.2 %; MCH 30.4 pg (27.0-32.0); MCHC 34.7 g/dL (32.0-37.0); MCV 87.8 fL (80.0-97.0); Mean Platelet Volume 10.7 fL (9.5-12.2); Monocytes # (A) 0.61 X 10*3/uL (0.20-1.00); Monocytes % (A) 8.6 %; NRBC Per 100 WBC 0 /100 WBCS (0.0-0.0); Neutrophils # (A) 4.09 X 10*3/uL (1.80-7.70); Neutrophils % (A) 57.9 %; Platelet Count 200 X 10*3/uL (140-440); RBC 4.83 X 10*6/uL (4.40-5.60); RDW 12.9 % (11.5-14.5); WBC 7.06 X 10*3/uL (4.50-10.00)
[2022-01-16 20:55] LABS: Appearance,Urine Clear (Clear); Bilirubin,Urine Negative (Negative); Blood,Urine Moderate (Negative); Color,Urine Dark Yellow (Yellow); Ketones,Urine Negative (Negative); Nitrite,Urine Positive (Negative); Urobilinogen,Urine 0.2 (0.2,1.0)
[2022-01-16 22:22] LABS: Bacteria,Urine 2+ /HPF (None Seen)
== END | disposition home or self-care (01) ==
LOC: LABPAT 11:40
PROVIDERS: ATTEND Urology
DX: Z01.812 Encounter for preprocedural laboratory examination (principal); N40.1 Benign prostatic hyperplasia with lower urinary tract symptoms
CPT/HCPCS: 80053; 81001; 85025; 87086

== ENCOUNTER 2022-01-23 13:00 | Day surgery (SDC) | payer MEDICARE ==
[2022-01-20 10:33] VITALS: BMI 30.8
--- NOTE | 2022-01-22 19:15 | P.GSHP ---
History of Present Illness H&P Date: 01/22/22 71 yo male with post op urine retention after knee surgery. He has failed several attempts to void without the catheter post surgery using flomax. His cysto showed an obstructing prostate. His prostate measured 35 gms. He was given treatment options and we have chosen a bipolar turp - Constitutional Constitutional: Denies chills, Denies fever - EENT Eyes: denies blurred vision, denies pain Ears, nose, mouth and throat: Denies headache, Denies sore throat - Cardiovascular Cardiovascular: Denies chest pain, Denies shortness of breath - Respiratory Respiratory: Denies cough, Denies 7 - Gastrointestinal Gastrointestinal: Denies abdominal pain, Denies diarrhea, Denies nausea, Denies vomiting - Genitourinary (Female) Genitourinary: Denies dysuria, Denies hematuria - Genitourinary (Male) Genitourinary: Denies dysuria, Denies hematuria - Musculoskeletal Musculoskeletal: Denies myalgias - Integumentary Integumentary: Denies pruritus, Denies rash - Neurological Neurological: Denies numbness, Denies weakness - Psychiatric Psychiatric: Denies anxiety, Denies depression - Endocrine Endocrine: Denies fatigue, Denies weight change Past Medical History Past Medical History: Deep Vein Thrombosis (DVT), Hypertension, Prostate Disorder, Seizure Disorder Additional Past Medical History / Comment(s): glioma, last seizure 12/10/21(attempt to reduce seizure medications), started rx for UTI 01/20/22, indwelling catheter since knee replacement surgery for urinary retention History of Any Multi-Drug Resistant Organisms: None Reported Past Surgical History: Joint Replacement, Orthopedic Surgery Additional Past Surgical History / Comment(s): brain surgery x3 to remove as much of gliioma as possible,rt knee replacement, ORIF rt ankle, surgery for fx neck, Hemorrhoidectomy, arthroscopy rt knee Past Anesthesia/Blood Transfusion Reactions: Motion Sickness Smoking Status: Former smoker - Past Family History Mother Family Medical History: Cancer Additional Family Medical History / Comment(s): breast, oral Medications and Allergies Home Medications Medication Instructions Recorded Confirmed Type Benazepril HCl 20 mg PO QAM 11/08/16 01/20/22 History Pravastatin Sodium [Pravachol] 20 mg PO HS 11/08/16 01/20/22 History Tamsulosin HCl [Flomax] 0.4 mg PO HS 11/08/16 01/20/22 History amLODIPine [Norvasc] 5 mg PO HS 11/08/16 01/20/22 History Aspirin [Adult Low Dose Aspirin EC] 81 mg PO Q12H 02/04/21 01/20/22 History levETIRAcetam [Keppra] 500 mg PO Q12HR 02/04/21 01/20/22 History Calcium Carbonate/Vitamin D3 1 each PO DAILY 09/22/21 01/20/22 History [Calcium 600 mg-D3 20 mcg (800 unit)] Lacosamide [Vimpat] 50 mg PO DAILY@1000,2200 09/22/21 01/20/22 History Lacosamide [Vimpat] 200 mg PO DAILY@1000,2200 09/22/21 01/20/22 History Levofloxacin [Levaquin] 500 mg PO DAILY 01/20/22 01/20/22 History Vitamin B Complex 1 each PO QAM 01/20/22 01/20/22 History Allergies Allergy/AdvReac Type Severity Reaction Status Date / Time No Known Allergies Allergy Verified 01/20/22 10:10 Surgical - Exam - General well developed, well nourished, no distress - Eyes PERRL - ENT no hearing loss - Neck trachea midline - Respiratory normal expansion, normal respiratory effort - Cardiovascular Rhythm: regular - Genitourinary indwelling catheter. enlarged benign prostate. normal penis with no external lesions, testicles present - Integumentary no rash - Neurologic somewhat aphasic secondary to brain surgery normal coordination - Musculoskeletal normal posture - Psychiatric oriented to time, oriented to person, oriented to place Assessment and Plan Assessment: Impression: urine retention. History of glioma with secondary aphasia, cardiac disease Plan: the patient will undergo a bipolar turp He has been cleared by Dr Bhatia
[~2022-01-23 13:00] MED LIST changes: -ACETAMINOPHEN TAB 500 MG TAB PO PRN; +AMPICILLIN 1,000 MG in SODIUM CHLORIDE 0.9% 50 ML IVPB PRN; -DEXAMETHASONE SOD PHOSPHATE 10 MG/ML 1 ML VIAL IV PRN; -DOCUSATE 100 MG CAP PO PRN; -FAMOTIDINE 20 MG/2 ML VIAL IVP PRN; +GENTAMICIN 120 MG in SODIUM CHLORIDE 0.9% 100 ML IVPB PRN; -KETOROLAC 15 MG/ML 1 ML VIAL IVP PRN; +LACTATED RINGERS 1,000 ML IV SCH; -LIDOCAINE 1% (10MG/ML) FOR IV START INTRADERMA PRN; +MIDAZOLAM 2 MG/2 ML VIAL IV PRN; +ONDANSETRON 4 MG/2 ML VIAL IVP ONE; -ONDANSETRON 4 MG/2 ML VIAL IVP PRN; -TRANEXAMIC ACID IN NACL,ISO-OS 1,000 MG in SALINE 1 100ML.BAG IVPB PRN; -oxyCODONE ER 10 MG TAB.ER.12H PO PRN
[2022-01-23] MEDS ORDERED: DEXAMETHASONE SOD PHOSPHATE 4 MG/ML 1 ML VIAL IVP ONE (13:59)
[2022-01-23] MEDS ORDERED: PHENYLEPHRINE-0.9% NACL SYG 1,000 MCG/10 ML SYRINGE ONE (14:10)
[2022-01-23] MEDS ORDERED: LIDOCAINE 2% INJ 20 MG/ML (2 ML VIAL) ONE (14:10)
[2022-01-23] MEDS ORDERED: GLYCOPYRROLATE 0.2 MG/ML 2 ML VIAL ONE (14:10)
[2022-01-23] MEDS ORDERED: PROPOFOL 10 MG/ML 20 ML VIAL IV ONE (14:10)
[2022-01-23] MEDS ORDERED: ROCURONIUM 10 MG/ML (5 ML VIAL) IV ONE (14:10)
[2022-01-23] MEDS ORDERED: SUCCINYLCHOLINE CHLORIDE 200 MG/10 ML VIAL IV ONE (14:10)
[2022-01-23] MEDS ORDERED: NEOSTIGMINE 1 MG/ML 10 ML VIAL ONE (14:10)
[2022-01-23] MEDS ORDERED: fentaNYL (PF) 50 MCG/ML 2 ML AMP ONE (14:10)
--- NOTE | 2022-01-23 15:38 | P.OP ---
Date of Procedure: 01/23/22 Preoperative Diagnosis: Urine retention secondary to BPH Postoperative Diagnosis: Same Procedure(s) Performed: Cystoscopy with bipolar TURP Anesthesia: JOSEE Surgeon: Nj Briseno Estimated Blood Loss (ml): 200 Pathology: other (Prostate) Condition: stable Disposition: PACU Indications for Procedure: Patient is 71. He went into urinary retention after knee surgery. We have been unable to get him to void spontaneously. He comes for a bipolar TURP Description of Procedure: Patient brought to the operative suite. The catheters removed. Given a general anesthetic. He is prepped and draped sterilely after being placed in lithotomy position. Under direct vision the 25-Citizen Of [place] sheath and direct vision obturator was introduced in urethra. Anterior urethra is normal with prostate shows trilobar obstruction with a prominent intravesical middle lobe. I first resect the very large intravesical middle lobe. I then moved to call 12:00 and resect the left lateral lobe from 12:00 to 6:00 first proximally and then distally with the margin being the verumontanum. I do the same on the right lobe. I then resect the redundant floor tissue. Then the procedure there is no significant obstructing tissue. The bladder free to prostatic chips with the Ellik evacuator. I reinspected the prostate and control any bleeding with electrocautery. I reinspected the bladder there is no active bleeding nor is there any prostatic chips remaining. The resectoscope removed. An 18-Citizen Of [place] coud-tip catheter is introduced in the bladder with clear urine return. The patient's awake and returned recovery in good condition. Be discharged home upon recovery and found the office in one week.
[2022-01-23 15:44] VITALS: TEMP 98.3
[2022-01-23 16:27] VITALS: BP 131/63; RESP 18
[2022-01-23 17:05] VITALS: PULSE 65
== END 2022-01-23 17:06 | disposition home or self-care (01) ==
LOC: OR 13:00
PROVIDERS: ATTEND Urology
DX: N40.1 Benign prostatic hyperplasia with lower urinary tract symptoms (principal); R33.8 Other retention of urine; I10 Essential (primary) hypertension; G40.909 Epilepsy, unspecified, not intractable, without status epilepticus; Z87.891 Personal history of nicotine dependence; Z79.82 Long term (current) use of aspirin; N41.1 Chronic prostatitis; Z86.718 Personal history of other venous thrombosis and embolism; Z87.440 Personal history of urinary (tract) infections
CPT/HCPCS: 52601; 88305; J0330; J1100; J2710; J2405; J3010; J1580; J0290; J2370; J2704; J2001

== ENCOUNTER 2022-01-25 12:15 | Emergency (ER) | payer MEDICARE ==
[2022-01-25 12:58] VITALS: RESP 18; TEMP 98.1
--- NOTE | 2022-01-25 13:12 | ED ---
General Adult HPI - General Chief complaint: Urogenital Stated complaint: Catheter issues Time Seen by Provider: 01/25/22 13:02 Source: patient, family, RN notes reviewed Mode of arrival: ambulatory Limitations: language barrier - History of Present Illness Initial comments: Patient is a pleasant 71-year-old male presenting to the emergency Department w ith catheter issues. Patient did have a TURP done Wednesday, 2 days ago. This morning patient had leaking from around the Sandoval catheter and has continued since that time. Patient has had some blood however this has steadily decreased. No abdominal pain. No super pubic pressure. No vomiting. No fever. Patient has had catheter in place for proximal he 4 months now secondary to prostate issues. - Related Data Home Medications Medication Instructions Recorded Confirmed Benazepril HCl 20 mg PO QAM 11/08/16 01/23/22 Pravastatin Sodium [Pravachol] 20 mg PO HS 11/08/16 01/23/22 Tamsulosin HCl [Flomax] 0.4 mg PO HS 11/08/16 01/23/22 amLODIPine [Norvasc] 5 mg PO HS 11/08/16 01/23/22 Aspirin [Adult Low Dose Aspirin EC] 81 mg PO Q12H 02/04/21 01/20/22 levETIRAcetam [Keppra] 500 mg PO Q12HR 02/04/21 01/23/22 Calcium Carbonate/Vitamin D3 1 each PO DAILY 09/22/21 01/20/22 [Calcium 600 mg-D3 20 mcg (800 unit)] Lacosamide [Vimpat] 50 mg PO DAILY@1000,2200 09/22/21 01/23/22 Lacosamide [Vimpat] 200 mg PO DAILY@1000,2200 09/22/21 01/23/22 Levofloxacin [Levaquin] 500 mg PO DAILY 01/20/22 01/23/22 Vitamin B Complex 1 each PO QAM 01/20/22 01/20/22 Allergies Allergy/AdvReac Type Severity Reaction Status Date / Time No Known Allergies Allergy Verified 01/25/22 12:58 Review of Systems ROS Statement: Those systems with pertinent positive or pertinent negative responses have been documented in the HPI. ROS Other: All systems not noted in ROS Statement are negative. Constitutional: Denies: fever Eyes: Denies: eye pain ENT: Denies: ear pain Respiratory: Denies: cough Cardiovascular: Denies: chest pain Endocrine: Denies: fatigue Gastrointestinal: Denies: abdominal pain Genitourinary: Reports: as per HPI Musculoskeletal: Denies: back pain Skin: Denies: rash Neurological: Denies: weakness Past Medical History Past Medical History: Cancer, Deep Vein Thrombosis (DVT), Hypertension, Prostate Disorder Additional Past Medical History / Comment(s): glioma History of Any Multi-Drug Resistant Organisms: None Reported Past Surgical History: Orthopedic Surgery Additional Past Surgical History / Comment(s): brain surgery, neck surgery Past Anesthesia/Blood Transfusion Reactions: No Reported Reaction, Motion Sickness Past Psychological History: No Psychological Hx Reported Smoking Status: Former smoker General Exam Limitations: language barrier General appearance: alert, in no apparent distress Head exam: Present: normocephalic Eye exam: Present: normal appearance Neck exam: Present: normal inspection Respiratory exam: Present: normal lung sounds bilaterally Cardiovascular Exam: Present: regular rate, normal rhythm GI/Abdominal exam: Present: soft. Absent: distended, tenderness exam: Present: normal inspection, other (Fully catheter in place. Minimal blood and mild to moderate urine in protective undergarment) Extremities exam: Present: normal inspection Neurological exam: Present: alert Psychiatric exam: Present: normal affect, normal mood Skin exam: Present: normal color Course Vital Signs 01/25/22 12:52 Temperature 98.1 F Pulse Rate 64 Respiratory 18 Rate Blood Pressure 130/64 O2 Sat by Pulse 95 Oximetry Medical Decision Making - Medical Decision Making Catheter flushed by nursing staff and is flowing well. No leakage. Disposition Clinical Impression: Leakage from urinary catheter Disposition: HOME SELF-CARE Condition: Stable Instructions (If sedation given, give patient instructions): Sandoval Catheter Placement and Care (ED) Additional Instructions: Please follow-up with your primary care physician and urologist being the week. Return for leakage, not passing urine, pain, fullness of the abdomen, worsening symptoms or other concerns. Is patient prescribed a controlled substance at d/c from ED?: No Referrals: Taj Laurent MD [REFERRING] - 1-2 days Nj Briseno MD [STAFF PHYSICIAN] - 1-2 days Time of Disposition: 14:52
[2022-01-25 15:09] VITALS: BP 132/76; PULSE 67
== END 2022-01-25 15:09 | disposition home or self-care (01) ==
LOC: EC 12:15
DX: T83.031A Leakage of indwelling urethral catheter, initial encounter (principal); I10 Essential (primary) hypertension; Z87.891 Personal history of nicotine dependence; Z86.718 Personal history of other venous thrombosis and embolism; Z79.82 Long term (current) use of aspirin; Z79.899 Other long term (current) drug therapy
CPT/HCPCS: 99283

== ENCOUNTER → 2023-01-14 | Day surgery (SDC) | payer MEDICARE ==
[2023-01-12 15:21] VITALS: BMI 30.8
[~2023-01-14] MED LIST changes: -AMPICILLIN 1,000 MG in SODIUM CHLORIDE 0.9% 50 ML IVPB PRN; -GENTAMICIN 120 MG in SODIUM CHLORIDE 0.9% 100 ML IVPB PRN; -HYDROmorphone 0.5 MG/0.5 ML SYRINGE IVP PRN; -LACTATED RINGERS 1,000 ML IV SCH; -MIDAZOLAM 2 MG/2 ML VIAL IV PRN; -ONDANSETRON 4 MG/2 ML VIAL IVP ONE; +SODIUM CHLORIDE 0.9% 1,000 ML IV SCH; +SODIUM CHLORIDE 0.9% 500 ML 500 ML IV ONE
[2023-01-14 08:29] VITALS: PULSE 69; RESP 16; TEMP 97
[2023-01-14 10:18] VITALS: BP 130/73
--- NOTE | 2023-01-14 14:27 | P.EPPROC ---
- EP Procedure Note Electrophysiology Procedure Note: Diagnosis Recurrent syncope Twelve-lead EKG shows sinus rhythm normal NM right bundle branch block pattern Tilt table test per protocol Baseline blood pressure 141/74 mmHg Baseline heart rate 50 beats a minute Patient was tilted upright at 70 per protocol No change in heart rate and blood pressure No syncope No evidence for dysautonomia or neurocardiogenic phenomena Impression Twelve-lead EKG shows normal NM interval with a right bundle branch block pattern sinus mechanism Normal heart rate and blood pressure response to upright tilting
== END ==
LOC: CATHEP 08:02
PROVIDERS: ATTEND Internal Medicine Clinical Cardiac Electrophysiology
DX: I25.10 Atherosclerotic heart disease of native coronary artery without angina pectoris (principal); I45.10 Unspecified right bundle-branch block; I10 Essential (primary) hypertension; E78.5 Hyperlipidemia, unspecified; Z79.82 Long term (current) use of aspirin; Z79.899 Other long term (current) drug therapy
CPT/HCPCS: 93660

== ENCOUNTER 2024-09-11 00:12 | Observation (INO) | payer MEDICARE ==
[2024-09-11 01:29] LABS: Basophils # (A) 0.05 10*3/uL (0.00-0.10); Basophils % (A) 0.6 %; Eosinophils # (A) 0.22 10*3/uL (0.04-0.35); Eosinophils % (A) 2.6 %; HCT 43.6 % (39.6-50.0); HGB 15.5 g/dL (13.0-17.0); Lymphocytes # (A) 1.65 10*3/uL (0.90-5.00); Lymphocytes % (A) 19.4 %; MCHC 35.6 g/dL (32.0-37.0); MCV 89.9 fL (80.0-97.0); Mean Platelet Volume 9.6 fL (9.5-12.2); Monocytes % (A) 11.8 %; Neutrophils # (A) 5.55 10*3/uL (1.80-7.70); Neutrophils % (A) 65.2 %; Platelet Count 192 10*3/uL (140-440); RBC 4.85 10*6/uL (4.40-5.60); RDW 12.6 % (11.5-14.5)
--- NOTE | 2024-09-11 02:01 | ED ---
Fall HPI - General Chief Complaint: Fall Stated Complaint: fall Time Seen by Provider: 09/11/24 00:33 Source: patient Mode of arrival: ambulatory - History of Present Illness Initial Comments: 74-year-old male presenting tonight for evaluation after a fall. Patient had a fall from standing tonight and hit his head on the door jam. He has a skin avulsion to hit the crown of his scalp. witnessed this fall and states there was no loss of consciousness. Patient is on no blood thinners. She does state that since the fall it seems that his right leg is a bit weaker than us ual. As result of previous brain surgeries patient does have a right sided deficit, however states that this is worse than usual. Patient also has a baseline aphasia and cognitive deficits, however states that he is acting "a bit slower than normal". Patient denies any pain. He does state that his right leg feels weaker than usual. He denies any nausea, vomiting, dizziness, vision or hearing changes, numbness, tingling. No chest pain, difficulty breathing, or abdominal pain. - Related Data Home Medications Medication Instructions Recorded Confirmed Benazepril HCl 20 mg PO DAILY@1000 11/08/16 09/11/24 Pravastatin Sodium [Pravachol] 20 mg PO HS@2200 11/08/16 09/11/24 amLODIPine [Norvasc] 5 mg PO HS@2200 11/08/16 09/11/24 Aspirin [Adult Low Dose Aspirin EC] 81 mg PO Q12HR@1000,2200 02/04/21 09/11/24 levETIRAcetam [Keppra] 500 mg PO Q12HR@1000,2200 02/04/21 09/11/24 Lacosamide [Vimpat] 50 mg PO Q12HR@1000,2200 09/22/21 09/11/24 Lacosamide [Vimpat] 200 mg PO Q12HR@1000,2200 09/22/21 09/11/24 Vitamin B Complex 1 cap PO DAILY@1000 01/20/22 09/11/24 Mirabegron [Myrbetriq] 25 mg PO DAILY@1000 01/12/23 09/11/24 Albuterol Sulfate [Ventolin HFA] 2 puff INHALATION RT-QID PRN 09/11/24 09/11/24 Amoxicillin 2,000 mg PO ONCE PRN 09/11/24 09/11/24 Calcium(Unknown Dose) 1 tab PO DAILY@1000 09/11/24 09/11/24 Carbamide Peroxide [Debrox Otic] 5 drops BOTH EARS SA@2200 09/11/24 09/11/24 Vitamin D3(Unknown Dose) 1 tab PO DAILY@1000 09/11/24 09/11/24 diazePAM [Valium] 2 mg PO TID PRN 09/11/24 09/11/24 Allergies Allergy/AdvReac Type Severity Reaction Status Date / Time No Known Allergies Allergy Verified 09/11/24 11:37 Review of Systems ROS Statement: Those systems with pertinent positive or pertinent negative responses have been documented in the HPI. ROS Other: All systems not noted in ROS Statement are negative. Past Medical History Past Medical History: Cancer, Deep Vein Thrombosis (DVT), Hypertension, Prostate Disorder Additional Past Medical History / Comment(s): SEE DR SERRANO'S H&P. glioma. limited ROM in neck due to fracture and fusion. slight cognitive impairment due to brain surgeries History of Any Multi-Drug Resistant Organisms: None Reported Past Surgical History: Joint Replacement, Orthopedic Surgery, Prostate Surgery Additional Past Surgical History / Comment(s): brain surgery x3, neck surgery- neck fx (limited ROM), right TKR, prostatectomy Past Anesthesia/Blood Transfusion Reactions: No Reported Reaction Past Psychological History: No Psychological Hx Reported Smoking Status: Former smoker Past Alcohol Use History: None Reported Past Drug Use History: None Reported - Past Family History Mother Family Medical History: Cancer General Exam Limitations: no limitations General appearance: alert, in no apparent distress Head exam: Present: normocephalic Expanded Head exam: Present: abrasion Eye exam: Present: normal appearance, PERRL, EOMI. Absent: periorbital swelling Pupils: Present: normal accommodation Neck exam: Present: normal inspection. Absent: tenderness Respiratory exam: Present: normal lung sounds bilaterally. Absent: respiratory distress, wheezes, rales, rhonchi, stridor Cardiovascular Exam: Present: regular rate, normal rhythm, normal heart sounds. Absent: systolic murmur, diastolic murmur, rubs, gallop, clicks Extremities exam: Present: normal inspection. Absent: tenderness Neurological exam: Present: alert, oriented X3 Expanded Speech: Present: expressive aphasia Cranial nerves: EOM's Intact: Normal Motor strength exam: RUE: 4, LUE: 5, RLE: 3, LLE: 5 Eye Response: (4) open spontaneously Motor Response: (6) obeys commands Verbal Response: (5) oriented Steve Total: 15 Psychiatric exam: Present: normal affect, normal mood Skin exam: Present: warm, dry, normal color Course Vital Signs 09/11/24 09/11/24 09/11/24 00:15 02:59 05:25 Temperature 97.9 F 97.8 F Pulse Rate 72 70 60 Respiratory 18 18 17 Rate Blood Pressure 131/77 154/86 126/80 O2 Sat by Pulse 95 97 96 Oximetry 09/11/24 09/11/24 09/11/24 08:30 10:10 15:04 Temperature Pulse Rate 64 74 68 Respiratory 16 17 17 Rate Blood Pressure 148/74 140/74 136/68 O2 Sat by Pulse 97 96 96 Oximetry 09/11/24 09/11/24 17:40 19:16 Temperature Pulse Rate 71 73 Respiratory 17 17 Rate Blood Pressure 138/69 134/68 O2 Sat by Pulse 96 94 L Oximetry Medical Decision Making - Medical Decision Making 74-year-old male presenting with chief complaint of fall at home. His present at bedside states that since the fall his right leg seems weaker than usual. While the patient does have history of a right-sided deficit after brain surgeries, this seems worse than his baseline. On examination patient is very weak in his right leg. Lab work requires no action. No evidence of UTI. CT shows no acute intracranial process or cervical spine fracture. No fracture or dislocation seen on x-rays of the ankle, knee, or hip/pelvis. Attempted to get the patient up to ambulate and after taking a few steps he is unable to control his right leg. This puts him at a high risk for falling again at home and his is quite worried about this. Patient will be admitted for neurology consultation and consults to physical and Occupational Therapy are placed. Dena ruvalcaba is agreeable with this plan. I discussed this case with my attending Dr. Reynoso Was pt. sent in by a medical professional or institution (, PA, PANTOGRAPH I ENGRAVER, urgent care, hospital, or fci...) When possible be specific @ -No Did you speak to anyone other than the patient for history (EMS, parent, family, police, friend...)? What history was obtained from this source @ - Did you review nursing and triage notes (agree or disagree)? Why? @ -I reviewed and agree with nursing and triage notes Were old charts reviewed (outside hosp., previous admission, EMS record, old EKG, old radiological studies, urgent care reports/EKG's, fci records)? Report findings @ -No old charts were reviewed Differential Diagnosis (chest pain, altered mental status, abdominal pain women, abdominal pain men, vaginal bleeding, weakness, fever, dyspnea, syncope, headache, dizziness, GI bleed, back pain, seizure, CVA, palpatations, mental health, musculoskeletal)? @ -MDM Differential Weakness: Hypoglycemia, shock, sepsis, hyponatremia, anemia, infection, AR, ETOH, adverse medicine reaction, overdose, stroke. ... This is not meant to be an all- inclusive list EKG interpreted by me (3pts min.). @ -EKG shows sinus rhythm with right bundle branch block. Ventricular rate 64. QRS 149 QT 420 QTc 430 X-rays interpreted by me (1pt min.). @ -X-rays of the right ankle hip and knee show no fracture or dislocation. CT interpreted by me (1pt min.). @ -CT shows no acute hemorrhage hydrocephalus or mass effect and no acute fracture or subluxation U/S interpreted by me (1pt. min.). @ -None done What testing was considered but not performed or refused? (CT, X-rays, U/S, labs)? Why? @ -None What meds were considered but not given or refused? Why? @ -None Did you discuss the management of the patient with other professionals (professionals i.e. , PA, PANTOGRAPH I ENGRAVER, lab, RT, psych nurse, renal social worker, final cleaner, teacher, state highway police officer, family preservation caseworker)? Give summary @ -My attending spoke with the [facility] provider on-call accepted admission Was smoking cessation discussed for >3mins.? @ -No Was critical care preformed (if so, how long)? @ -No Were there social determinants of health that impacted care today? How? (Homelessness, low income, unemployed, alcoholism, drug addiction, transpo rtation, low edu. Level, literacy, decrease access to med. care, snf, rehab)? @ -No Was there de-escalation of care discussed even if they declined (Discuss DNR or withdrawal of care, Hospice)? DNR status @ -No What co-morbidities impacted this encounter? (DM, HTN, Smoking, COPD, CAD, Cancer, CVA, ARF, Chemo, Hep., AIDS, mental health diagnosis, sleep apnea, morbid obesity)? @ -None Was patient admitted / discharged? Hospital course, mention meds given and route, prescriptions, significant lab abnormalities, going to OR and other pertinent info. @ -Admitted, see above for details Undiagnosed new problem with uncertain prognosis? @ -No Drug Therapy requiring intensive monitoring for toxicity (Heparin, Nitro, Insulin, Cardizem)? @ -No Were any procedures done? @ -No Diagnosis/symptom? @ -Right sided weakness Acute, or Chronic, or Acute on Chronic? @ -Acute on chronic Uncomplicated (without systemic symptoms) or Complicated (systemic symptoms)? @ -Complicated Side effects of treatment? @ -No Exacerbation, Progression, or Severe Exacerbation? @ -No Poses a threat to life or bodily function? How? (Chest pain, USA, AR, pneumonia, PE, COPD, DKA, ARF, appy, cholecystitis, CVA, Diverticulitis, Homicidal, Suicidal, threat to staff... and all critical care pts) @ -Yes - Lab Data Result diagrams: 09/11/24 01:08 09/11/24 01:08 Lab Results 09/11/24 09/11/24 09/11/24 Range/Units 01:08 01:08 01:08 WBC 8.50 (4.50-10.00) 10*3/uL RBC 4.85 (4.40-5.60) 10*6/uL Hgb 15.5 (13.0-17.0) g/dL Hct 43.6 (39.6-50.0) % MCV 89.9 (80.0-97.0) fL MCH 32.0 (27.0-32.0) pg MCHC 35.6 (32.0-37.0) g/dL Plt Count 192 (140-440) 10*3/uL MPV 9.6 (9.5-12.2) fL Immature Gran % (Auto) 0.4 % Neutrophils % 65.2 % Lymphocytes % 19.4 % Monocytes % 11.8 % Eosinophils % 2.6 % Basophils % 0.6 % Immature Gran # 0.03 (0.00-0.04) 10*3/uL Neutrophils # 5.55 (1.80-7.70) 10*3/uL Lymphocytes # 1.65 (0.90-5.00) 10*3/uL Monocytes # 1.00 (0.20-1.00) 10*3/uL Eosinophils # 0.22 (0.04-0.35) 10*3/uL Basophils # 0.05 (0.00-0.10) 10*3/uL PT 10.8 (10.0-12.5) sec INR 1.0 (<1.2) APTT 23.1 (22.0-30.0) sec Sodium 135 L (137-145) mmol/L Potassium 4.2 (3.5-5.1) mmol/L Chloride 100 (98-107) mmol/L Carbon Dioxide 27 (22-30) mmol/L Anion Gap 8 mmol/L BUN 20 (9-20) mg/dL Creatinine 0.75 (0.66-1.25) mg/dL Est GFR (CKD-EPI)AfAm >90 (>60 ml/min/1.73 sqM) Est GFR (CKD-EPI)NonAf 90 (>60 ml/min/1.73 sqM) Glucose 105 H (74-99) mg/dL Plasma Lactic Acid Toni (0.7-2.0) mmol/L Calcium 9.4 (8.4-10.2) mg/dL Magnesium 2.2 (1.6-2.3) mg/dL Total Bilirubin 0.5 (0.2-1.3) mg/dL AST 25 (17-59) U/L ALT 29 (4-49) U/L Alkaline Phosphatase 53 (38-126) U/L Total Protein 6.5 (6.3-8.2) g/dL Albumin 3.8 (3.5-5.0) g/dL Urine Color Urine Appearance (Clear) Urine pH (5.0-8.0) Ur Specific [place] (1.001-1.035) Urine Protein (Negative) Urine Glucose (UA) (Negative) Urine Ketones (Negative) Urine Blood (Negative) Urine Nitrite (Negative) Urine Bilirubin (Negative) Urine Urobilinogen (<2.0) mg/dL Ur Leukocyte Esterase (Negative) 09/11/24 09/11/24 Range/Units 01:08 02:56 WBC (4.50-10.00) 10*3/uL RBC (4.40-5.60) 10*6/uL Hgb (13.0-17.0) g/dL Hct (39.6-50.0) % MCV (80.0-97.0) fL MCH (27.0-32.0) pg MCHC (32.0-37.0) g/dL Plt Count (140-440) 10*3/uL MPV (9.5-12.2) fL Immature Gran % (Auto) % Neutrophils % % Lymphocytes % % Monocytes % % Eosinophils % % Basophils % % Immature Gran # (0.00-0.04) 10*3/uL Neutrophils # (1.80-7.70) 10*3/uL Lymphocytes # (0.90-5.00) 10*3/uL Monocytes # (0.20-1.00) 10*3/uL Eosinophils # (0.04-0.35) 10*3/uL Basophils # (0.00-0.10) 10*3/uL PT (10.0-12.5) sec INR (<1.2) APTT (22.0-30.0) sec Sodium (137-145) mmol/L Potassium (3.5-5.1) mmol/L Chloride (98-107) mmol/L Carbon Dioxide (22-30) mmol/L Anion Gap mmol/L BUN (9-20) mg/dL Creatinine (0.66-1.25) mg/dL Est GFR (CKD-EPI)AfAm (>60 ml/min/1.73 sqM) Est GFR (CKD-EPI)NonAf (>60 ml/min/1.73 sqM) Glucose (74-99) mg/dL Plasma Lactic Acid Toni 1.4 (0.7-2.0) mmol/L Calcium (8.4-10.2) mg/dL Magnesium (1.6-2.3) mg/dL Total Bilirubin (0.2-1.3) mg/dL AST (17-59) U/L ALT (4-49) U/L Alkaline Phosphatase (38-126) U/L Total Protein (6.3-8.2) g/dL Albumin (3.5-5.0) g/dL Urine Color Light Yellow Urine Appearance Clear (Clear) Urine pH 5.5 (5.0-8.0) Ur Specific [place] 1.010 (1.001-1.035) Urine Protein Negative (Negative) Urine Glucose (UA) Negative (Negative) Urine Ketones Negative (Negative) Urine Blood Negative (Negative) Urine Nitrite Negative (Negative) Urine Bilirubin Negative (Negative) Urine Urobilinogen <2.0 (<2.0) mg/dL Ur Leukocyte Esterase Negative (Negative) Disposition Clinical Impression: Right sided weakness Disposition: ADMITTED IP TO THIS [facility] Condition: Fair Time of Disposition: 03:27
--- NOTE | 2024-09-11 02:08 | CT ---
EXAM: CT Head Without Intravenous Contrast CLINICAL HISTORY: ITS.REASON CT Reason: head injury TECHNIQUE: Axial computed tomography images of the head/brain without intravenous contrast. CTDI is 45.3 mGy and DLP is 1150 mGy-cm. This CT exam was performed using one or more of the following dose reduction techniques: automated exposure control, adjustment of the mA and/or kV according to patient size, and/or use of iterative reconstruction technique. COMPARISON: No relevant prior studies available. FINDINGS: Brain: No hemorrhage or mass effect. Left frontal encephalomalacia. Left frontal/parietal convexity subdural hygroma. Ventricles: No hydrocephalus. Bones/joints: Left-sided craniotomy. Soft tissues: Unremarkable. Sinuses: No air fluid level. Mastoid air cells: Clear. IMPRESSION: No acute hemorrhage, hydrocephalus, or mass effect. EXAM: CT Cervical Spine Without Intravenous Contrast CLINICAL HISTORY: ITS.REASON CT Reason: head injury TECHNIQUE: Axial computed tomography images of the cervical spine without intravenous contrast. CTDI is 3.8 mGy and DLP is 358.3 mGy-cm. This CT exam was performed using one or more of the following dose reduction techniques: automated exposure control, adjustment of the mA and/or kV according to patient size, and/or use of iterative reconstruction technique. COMPARISON: No relevant prior studies available. FINDINGS: Vertebrae: No acute fracture. Discs/spinal canal/neural foramina: degenerative changes. Soft tissues: No prevertebral swelling. IMPRESSION: No acute fracture or subluxation.
[2024-09-11 02:14] LABS: Partial Thromboplastin Time 23.1 sec (22.0-30.0); Prothrombin Time 10.8 sec (10.0-12.5)
[2024-09-11 02:24] LABS: ALT 29 U/L (4-49); AST 25 U/L (17-59); African American GFR (CKD) >90 (>60 ml/min/1.73 sqM); Albumin 3.8 g/dL (3.5-5.0); Alkaline Phosphatase 53 U/L (38-126); Anion Gap 8 mmol/L; Blood Urea Nitrogen 20 mg/dL (9-20); Calcium 9.4 mg/dL (8.4-10.2); Carbon Dioxide 27 mmol/L (22-30); Chloride 100 mmol/L (98-107); Glucose 105 mg/dL (74-99); Magnesium 2.2 mg/dL (1.6-2.3); Non-African American GFR(CKD) 90 (>60 ml/min/1.73 sqM); Potassium 4.2 mmol/L (3.5-5.1); Sodium 135 mmol/L (137-145); Total Bilirubin 0.5 mg/dL (0.2-1.3); Total Protein 6.5 g/dL (6.3-8.2)
--- NOTE | 2024-09-11 02:48 | XR ---
EXAM: XR Right Ankle Complete, 3 or More Views CLINICAL HISTORY: XR Reason: fall TECHNIQUE: Frontal, lateral and oblique views of the right ankle. COMPARISON: No relevant prior studies available. FINDINGS: Bones/joints: There is a metallic plate of the lateral aspect of the distal fibula. No acute fracture or dislocation is seen. There is a chronic appearing 6 mm calcification adjacent to the tip of the medial malleolus, likely secondary to old injury. Mild narrowing and osteophytosis of the ankle mortise joint consistent with posttraumatic arthritis. No joint effusion is seen. Soft tissues: Unremarkable. Vasculature: Mild diffuse arterial calcification. IMPRESSION: 1. There is a metallic plate of the lateral aspect of the distal fibula. No acute fracture or dislocation is seen. 2. There is a chronic appearing 6 mm calcification adjacent to the tip of the medial malleolus, likely secondary to old injury. 3. Mild narrowing and osteophytosis of the ankle mortise joint consistent with posttraumatic arthritis.
--- NOTE | 2024-09-11 02:50 | XR ---
EXAM: XR Right Hip With Pelvis When Performed, 2 or 3 Views CLINICAL HISTORY: XR Reason: fall TECHNIQUE: Two or three views of the right hip with pelvis when performed. COMPARISON: CT scan from 09/02/2021 FINDINGS: Bones/joints: The proximal femurs are intact and normally positioned with respect to the acetabulum bilaterally. No acute fracture. No dislocation. Soft tissues: Unremarkable. Vasculature: There are several phleboliths in the pelvis. IMPRESSION: The proximal femurs are intact and normally positioned with respect to the acetabulum bilaterally. No acute fracture or dislocation is seen.
--- NOTE | 2024-09-11 02:51 | XR ---
EXAM: XR Right Knee, 3 Views CLINICAL HISTORY: XR Reason: fall TECHNIQUE: Three views of the right knee. COMPARISON: 09/24/2021 FINDINGS: Bones/joints: Surgical changes status post total knee arthroplasty. The device is normally aligned. No acute fracture or loosening is identified. There are at least 2 loose bodies in the suprapatellar bursa measuring up to 1 cm long axis. No acute fracture or dislocation is seen. No joint effusion is identified. Soft tissues: See above. IMPRESSION: Surgical changes status post total knee arthroplasty. The device is normally aligned. No acute fracture or loosening is identified.
[2024-09-11 03:02] LABS: Appearance,Urine Clear (Clear); Bilirubin,Urine Negative (Negative); Blood,Urine Negative (Negative); Color,Urine Light Yellow; Glucose,Urine (UA) Negative (Negative); Ketones,Urine Negative (Negative); Leukocyte Esterase,Urine Negative (Negative); Nitrite,Urine Negative (Negative); PH, Urine 5.5 (5.0-8.0); Protein,Urine Negative (Negative); Urobilinogen,Urine <2.0 mg/dL (<2.0)
[2024-09-11] MEDS ORDERED: ACETAMINOPHEN TAB 325 MG TAB PO PRN (03:25)
[2024-09-11] MEDS ORDERED: NALOXONE 0.4 MG/ML 1 ML VIAL IV PRN (03:25)
[2024-09-11] MEDS ORDERED: MELATONIN 3 MG TABLET PO PRN (10:06)
[2024-09-11] MEDS ORDERED: MAG HYDROX/AL HYDROX/SIMETH 30 ML CUP PO PRN (10:06)
[2024-09-11] MEDS ORDERED: ONDANSETRON 4 MG/2 ML VIAL IVP PRN (10:06)
[2024-09-11] MEDS: SODIUM CHLORIDE 0.9% 1,000 ML IV SCH (10:49)
[2024-09-11] MEDS: LACOSAMIDE 50 MG TABLET PO SCH ×2 (11:44)
[2024-09-11] MEDS: levETIRAcetam 500 MG TAB PO SCH (11:44)
--- NOTE | 2024-09-11 13:40 | P.CNNES ---
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 The is at bedside who provides some of the history. It seems the patient has been having predominately shaking of the right legs that is unsuppressed when walking or putting pressure on it and this has been going on for two days. So yesterday, because of the leg shaking, he lost balance and fell. No lost of consciousness, jerking of the upper extremities, foaming around the mouth. And yesterday his legs were severely weak (right >left) towards the end. He does have history of brain tumor s/p 3 resection and seizures. His states his seizures are not this description. For seizure he is on Vimpat 250mg bid and Keppra 500mg bid and he follows-up with Dr. Clifford's P.A. He feels today slightly better. Some of the work-up during this hospital visit consisted of: I reviewed the lab work-up. CT head: No acute hemorrhage, hydrocephalus or mass effect. In body of report he has left frontal encephalomalacia. Left frontal/parietal covexity subdural hygroma. I did review CT and agree there is no acute or subacute stroke and has old stroke over the left frontal CT cervical spine: No acute fracture or subluxation. Review of Systems As per HPI. Past Medical History Past Medical History: Cancer, Deep Vein Thrombosis (DVT), Hypertension, Prostate Disorder Additional Past Medical History / Comment(s): SEE DR SERRANO'S H&P. glioma. limited ROM in neck due to fracture and fusion. slight cognitive impairment due to brain surgeries History of Any Multi-Drug Resistant Organisms: None Reported Past Surgical History: Joint Replacement, Orthopedic Surgery, Prostate Surgery Additional Past Surgical History / Comment(s): brain surgery x3, neck surgery- neck fx (limited ROM), right TKR, prostatectomy Past Anesthesia/Blood Transfusion Reactions: No Reported Reaction Past Psychological History: No Psychological Hx Reported Smoking Status: Former smoker Past Alcohol Use History: None Reported Past Drug Use History: None Reported - Past Family History Mother Family Medical History: Cancer Medications and Allergies Home Medications Medication Instructions Recorded Confirmed Type Benazepril HCl 20 mg PO DAILY@1000 11/08/16 09/11/24 History Pravastatin Sodium [Pravachol] 20 mg PO HS@219911/08/16 09/11/24 History amLODIPine [Norvasc] 5 mg PO HS@219911/08/16 09/11/24 History Aspirin [Adult Low Dose Aspirin EC] 81 mg PO Q12HR@1000,219902/04/21 09/11/24 History levETIRAcetam [Keppra] 500 mg PO Q12HR@1000,0 02/04/21 09/11/24 History Lacosamide [Vimpat] 50 mg PO Q12HR@1000,219909/22/21 09/11/24 History Lacosamide [Vimpat] 200 mg PO Q12HR@1000,219909/22/21 09/11/24 History Vitamin B Complex 1 cap PO DAILY@1000 01/20/22 09/11/24 History Mirabegron [Myrbetriq] 25 mg PO DAILY@1000 01/12/23 09/11/24 History Albuterol Sulfate [Ventolin HFA] 2 puff INHALATION RT-QID PRN 09/11/24 09/11/24 History Amoxicillin 2,000 mg PO ONCE PRN 09/11/24 09/11/24 History Calcium(Unknown Dose) 1 tab PO DAILY@99909/11/24 09/11/24 History Carbamide Peroxide [Debrox Otic] 5 drops BOTH EARS SA@219909/11/24 09/11/24 History Vitamin D3(Unknown Dose) 1 tab PO DAILY@1000 09/11/24 09/11/24 History diazePAM [Valium] 2 mg PO TID PRN 09/11/24 09/11/24 History Allergies Allergy/AdvReac Type Severity Reaction Status Date / Time No Known Allergies Allergy Verified 09/11/24 11:37 Physical Examination - Vital Signs Vital Signs: Vital Signs Temp Pulse Resp BP Pulse Ox 09/11/24 10:10 74 17 140/74 96 09/11/24 08:30 64 16 148/74 97 09/11/24 05:25 97.8 F 60 17 126/80 96 09/11/24 02:59 70 18 154/86 97 09/11/24 00:15 97.9 F 72 18 131/77 95 Intake and Output 09/10/24 09/11/24 09/11/24 22:59 06:59 14:59 Other: Weight 99.79 kg General: Lying in bed and is not in acute distress. Neuro: The patient is awake, alert, oriented to self, place and time. Has expressive aphasia. Has slow response due to his expressive aphasia. Pupils are round, 3mm and reactive to light. Visual arana are full to confrontation. EOM intact and no nystagmus. Normal facial sensation to touch throughout. No facial weakness. No dysarthria. Motor: Strength is right upper is 4+ and lower extremity is 4-4+. Left side is 5/5. Normal tone and bulk. Sensation: Normal to touch throughout. Plantars: Mute bilaterally. Results - Laboratory Findings CBC and BMP: 09/11/24 01:08 09/11/24 01:08 Abnormal Lab Findings: Abnormal Labs 09/11/24 01:08 Sodium 135 L Glucose 105 H Assessment and Plan Assessment: This is a 74 y/o gentleman with history of brain tumor s/p 3 resection with residual expressive aphasia and right hemiparesis, seizure who presents because for past two days prior to presenting hospital has been having uncontrolled shaking of the right leg predominately with movement without loss of consciousness then weakness. 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 Today doing better today History of brain tumor s/p 3 resection with residual expressive aphasia and right hemiparesis. Has encephalomalacia over the left frontal History of seizure and is on Vimpat and Keppra Plan: Patient is on Vimpat 250mg bid and Keppra 500mg bid. I recommended going up on Keppra to 1gm bid but patient's refused and wanted to be evaluated by his outpatient neurologist (Dr. Clifford's P.A.) and has appointment with her tomorrow at 1pm. Recommend a prolonged EEG as outpatient (consider for couple days EEG to rule out any subclinical seizures). Seizure precaution and pads. Patient will try to pursue with MRI Brain as outpatient (unable to perform today since backed up) and that can be coordinated by his outpatient neurologist. Per [place] DM[place] because of seizure, no driving for 6 months until seizure free, avoid height, swim unassisted or heavy machinery. Recommend PT and OT evaluation Will defer the rest of medical management to primary team. If PT and OT cleared the patient, the patient is clear from my side. Thank you for the consultation. Time with Patient: Greater than 30
[2024-09-11] MEDS ORDERED: ALBUTEROL NEBULIZED 2.5 MG/3 ML INHALATION PRN (14:21)
[2024-09-11] MEDS ORDERED: diazePAM 2 MG TAB PO PRN (14:21)
--- NOTE | 2024-09-11 14:21 | P.HPIM ---
History of Present Illness H&P Date: 09/11/24 History of present illness; patient is a 74-year-old gentleman past medical history significant for stroke, hypertension, seizure who presented to the hospital for a fall. Patient apparently was all right last night when he lost his balance and fell from a standing position hitting his head against the door. There was no complaint of loss of consciousness. There was no jerking movement of any extremity. There was no complaint of fecal or urine continence. did notice that the patient was more weaker on his right side, patient does have baseline right-sided weakness but it seemed worse to the family. There is no complaint of chest pain. There is no complaint of shortness of breath. Patient denies any palpitation. There is no complaint of orthopnea or PND. Denies any nausea, vomiting abdominal pain. Patient denies any complaint of dizziness. There is no complaint of headache. Because of his fall, patient was brought to the ER Initial lab work done in the ER showed WBC 8.5, hemoglobin 15.5, platelet count 192 sodium 135, potassium 4.2, BUN 20, creatinine 0.75, glucose 105 UA negative for infection EKG done in the ER showed heart rate of 64 , no ST segment elevation or d epression seen, no T-wave inversions seen. CT head done showed no acute intracranial process CT cervical spine showed no cervical spine fractures X-ray right ankle showed a metallic plate of the lateral aspect of distal fibula, no acute fracture or dislocation. Mild narrowing and osteophytosis of t he ankle mortise joint consistent with posttraumatic arthritis X-ray hip and pelvis done showed proximal femurs are intact and normally positioned with respect to the acetabulum bilaterally. X-ray right knee done showed surgical changes consistent with total knee arthroplasty Patient admitted to internal medicine service REVIEW OF SYSTEMS: CONSTITUTIONAL: No fever, no malaise, no fatigue. HEENT: No recent visual problems or hearing problems. Denied any sore throat. CARDIOVASCULAR: No chest pain, orthopnea, PND, no palpitations, no syncope. PULMONARY: No shortness of breath, no cough, no hemoptysis. GASTROINTESTINAL: No diarrhea, no nausea, no vomiting, no abdominal pain. NEUROLOGICAL: No headaches, no weakness, no numbness. HEMATOLOGICAL: Denies any bleeding or petechiae. GENITOURINARY: Denies any burning micturition, frequency, or urgency. MUSCULOSKELETAL/RHEUMATOLOGICAL: Denies any joint pain, swelling, or any muscle pain. ENDOCRINE: Denies any polyuria or polydipsia. The rest of the 14-point review of systems is negative. PHYSICAL EXAMINATION: GENERAL: The patient is alert and oriented x3, not in any acute distress. Well developed, well nourished. HEENT: Pupils are round and equally reacting to light. EOMI. No scleral icterus. No conjunctival pallor. Normocephalic, atraumatic. No pharyngeal erythema. No thyromegaly. CARDIOVASCULAR: S1 and S2 present. No murmurs, rubs, or gallops. PULMONARY: Chest is clear to auscultation, no wheezing or crackles. ABDOMEN: Soft, nontender, nondistended, normoactive bowel sounds. No palpable organomegaly. MUSCULOSKELETAL: No joint swelling or deformity. EXTREMITIES: No cyanosis, clubbing, or pedal edema. NEUROLOGICAL: Right-sided weakness SKIN: No rashes. Assessment and plan Ground-level fall Right-sided weakness History of prior CVA History of seizure History of hyperlipidemia History of hypertension Monitor vital signs Monitor CBC Monitor CMP Continue telemetry monitoring Ordered neurochecks Fall precaution Delirium precautions Ordered IV fluids Ordered PT and OT evaluation Resume home med Consult neurology Labs and medication were reviewed.. Continue same treatment. Continue with symptomatic treatment. Resume home medication. Monitor labs and vitals. DVT and GI prophylaxis. Further recommendations as per clinical course of the patient Dictation was produced using [employer] dictation software. please excuse any grammatical, word or spelling errors. Past Medical History Past Medical History: Cancer, Deep Vein Thrombosis (DVT), Hypertension, Prostate Disorder Additional Past Medical History / Comment(s): SEE DR SERRANO'S H&P. glioma. limited ROM in neck due to fracture and fusion. slight cognitive impairment due to brain surgeries History of Any Multi-Drug Resistant Organisms: None Reported Past Surgical History: Joint Replacement, Orthopedic Surgery, Prostate Surgery Additional Past Surgical History / Comment(s): brain surgery x3, neck surgery- neck fx (limited ROM), right TKR, prostatectomy Past Anesthesia/Blood Transfusion Reactions: No Reported Reaction Past Psychological History: No Psychological Hx Reported Smoking Status: Former smoker Past Alcohol Use History: None Reported Past Drug Use History: None Reported - Past Family History Mother Family Medical History: Cancer Medications and Allergies Home Medications Medication Instructions Recorded Confirmed Type Benazepril HCl 20 mg PO DAILY@1000 11/08/16 09/11/24 History Pravastatin Sodium [Pravachol] 20 mg PO HS@219911/08/16 09/11/24 History amLODIPine [Norvasc] 5 mg PO HS@219911/08/16 09/11/24 History Aspirin [Adult Low Dose Aspirin EC] 81 mg PO Q12HR@1000,219902/04/21 09/11/24 History levETIRAcetam [Keppra] 500 mg PO Q12HR@1000,0 02/04/21 09/11/24 History Lacosamide [Vimpat] 50 mg PO Q12HR@1000,219909/22/21 09/11/24 History Lacosamide [Vimpat] 200 mg PO Q12HR@1000,219909/22/21 09/11/24 History Vitamin B Complex 1 cap PO DAILY@1000 01/20/22 09/11/24 History Mirabegron [Myrbetriq] 25 mg PO DAILY@1000 01/12/23 09/11/24 History Albuterol Sulfate [Ventolin HFA] 2 puff INHALATION RT-QID PRN 09/11/24 09/11/24 History Amoxicillin 2,000 mg PO ONCE PRN 09/11/24 09/11/24 History Calcium(Unknown Dose) 1 tab PO DAILY@1000 09/11/24 09/11/24 History Carbamide Peroxide [Debrox Otic] 5 drops BOTH EARS SA@219909/11/24 09/11/24 History Vitamin D3(Unknown Dose) 1 tab PO DAILY@1000 09/11/24 09/11/24 History diazePAM [Valium] 2 mg PO TID PRN 09/11/24 09/11/24 History Allergies Allergy/AdvReac Type Severity Reaction Status Date / Time No Known Allergies Allergy Verified 09/11/24 11:37 Physical Exam Vitals: Vital Signs Temp Pulse Resp BP Pulse Ox 09/11/24 08:30 64 16 148/74 97 09/11/24 05:25 97.8 F 60 17 126/80 96 09/11/24 02:59 70 18 154/86 97 09/11/24 00:15 97.9 F 72 18 131/77 95 Intake and Output 09/10/24 09/11/24 09/11/24 22:59 06:59 14:59 Other: Weight 99.79 kg Results CBC & Chem 7: 09/11/24 01:08 09/11/24 01:08 Labs: Abnormal Lab Results - Last 24 Hours (Table) 09/11/24 Range/Units 01:08 Sodium 135 L (137-145) mmol/L Glucose 105 H (74-99) mg/dL
[2024-09-11] MEDS: ASPIRIN 81 MG PO SCH (21:53)
[2024-09-11] MEDS: PRAVASTATIN SODIUM 20 MG TAB PO SCH (21:54)
[2024-09-11] MEDS: amLODIPine 5 MG TAB PO SCH (21:54)
[2024-09-12 07:33] LABS: Basophils # (A) 0.05 10*3/uL (0.00-0.10); Basophils % (A) 0.7 %; Eosinophils # (A) 0.32 10*3/uL (0.04-0.35); Eosinophils % (A) 4.4 %; HCT 42.5 % (39.6-50.0); HGB 14.8 g/dL (13.0-17.0); Lymphocytes # (A) 2.12 10*3/uL (0.90-5.00); Lymphocytes % (A) 29.2 %; MCH 31.6 pg (27.0-32.0); MCHC 34.8 g/dL (32.0-37.0); MCV 90.8 fL (80.0-97.0); Mean Platelet Volume 10.7 fL (9.5-12.2); Monocytes # (A) 0.81 10*3/uL (0.20-1.00); Monocytes % (A) 11.1 %; Neutrophils # (A) 3.96 10*3/uL (1.80-7.70); Neutrophils % (A) 54.5 %; Platelet Count 167 10*3/uL (140-440); RBC 4.68 10*6/uL (4.40-5.60); RDW 12.5 % (11.5-14.5); WBC 7.27 10*3/uL (4.50-10.00)
[2024-09-12 07:34] VITALS: BP 123/71; PULSE 66; RESP 16; TEMP 97.5
[2024-09-12 08:02] LABS: ALT 25 U/L (4-49); African American GFR (CKD) >90 (>60 ml/min/1.73 sqM); Albumin 3.5 g/dL (3.5-5.0); Anion Gap 7 mmol/L; Blood Urea Nitrogen 12 mg/dL (9-20); Calcium 8.8 mg/dL (8.4-10.2); Carbon Dioxide 23 mmol/L (22-30); Chloride 108 mmol/L (98-107); Glucose 98 mg/dL (74-99); Non-African American GFR(CKD) >90 (>60 ml/min/1.73 sqM); Sodium 138 mmol/L (137-145); Total Bilirubin 0.8 mg/dL (0.2-1.3); Total Protein 6.2 g/dL (6.3-8.2)
[2024-09-12 08:09] LABS: AST 25 U/L (17-59); Alkaline Phosphatase 37 U/L (38-126); Potassium 4.5 mmol/L (3.5-5.1)
[2024-09-12] MEDS ORDERED: CALCIUM PO SCH (10:00)
[2024-09-12] MEDS: lisinopriL 20 MG TAB PO SCH (11:08)
--- NOTE | 2024-09-12 11:28 | P.PN ---
Subjective Progress Note Date: 09/12/24 I am following up with the patient and he feels he is doing well. No new neurological issues. Objective - Vital Signs Vital signs: Vital Signs Temp 97.5 F L 09/12/24 06:48 Pulse 66 09/12/24 06:48 Resp 16 09/12/24 06:48 BP 123/71 09/12/24 06:48 Pulse Ox 97 09/12/24 06:48 FiO2 Intake & Output 09/11/24 09/12/24 09/12/24 18:59 06:59 18:59 Intake Total 150 Output Total 375 Balance -225 Weight 99.79 kg Intake: Oral 150 Output: Urine 375 Other: Voiding Method Urinal # Voids 1 - Exam General: Lying in bed and is not in acute distress. Neuro: The patient is awake, alert, oriented to self, place and time. Has expressive aphasia. Has slow response due to his expressive aphasia. Pupils are round, 3mm and reactive to light. Visual arana are full to confrontation. EOM intact and no nystagmus. Normal facial sensation to touch throughout. No facial weakness. No dysarthria. Motor: Strength is right upper is 4+ and lower extremity is 4-4+. Left side is 5/5. Normal tone and bulk. Sensation: Normal to touch throughout. Plantars: Mute bilaterally. Some of the work-up during this hospital visit consisted of: I reviewed the lab work-up. CT head: No acute hemorrhage, hydrocephalus or mass effect. In body of report he has left frontal encephalomalacia. Left frontal/parietal covexity subdural hygroma. I did review CT and agree there is no acute or subacute stroke and has old stroke over the left frontal CT cervical spine: No acute fracture or subluxation. - Labs CBC & Chem 7: 09/12/24 07:04 09/12/24 07:04 Labs: Abnormal Lab Results - Last 24 Hours (Table) 09/12/24 Range/Units 07:04 Chloride 108 H (98-107) mmol/L Creatinine 0.59 L (0.66-1.25) mg/dL Alkaline Phosphatase 37 L (38-126) U/L Total Protein 6.2 L (6.3-8.2) g/dL Assessment and Plan Assessment: This is a 74 y/o gentleman with history of brain tumor s/p 3 resection with residual expressive aphasia and right hemiparesis, seizure who presents because for past two days prior to presenting hospital has been having uncontrolled shaking of the right leg predominately with movement without loss of consciousness then weakness. 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 Today doing better today History of brain tumor s/p 3 resection with residual expressive aphasia and right hemiparesis. Has encephalomalacia over the left frontal History of seizure and is on Vimpat and Keppra Plan: Patient is on Vimpat 250mg bid and Keppra 500mg bid. I recommended going up on Keppra to 1gm bid but patient's refused and wanted to be evaluated by his outpatient neurologist (Dr. Clifford's P.A.) and has appointment with her today at 1pm. If the patient continues to be here then we will proceed with a MRI of the brain if not then the MRI of the brain can be performed as an outpatient. The brain to be coordinated by the outpatient neurologist. Recommend a prolonged EEG as outpatient (consider for couple days EEG to rule out any subclinical seizures). Seizure precaution and pads. Per [place] DMV because of seizure, no driving for 6 months until seizure free, avoid height, swim unassisted or heavy machinery. Recommend PT and OT evaluation Will defer the rest of medical management to primary team. If PT and OT cleared the patient, the patient is clear from my side. Time with Patient: Less than 30
[2024-09-12] MEDS: NON FORMULARY DRUG (Mirabegron [Myrbetriq] 25 MG Tab.Er.24h) PO SCH (12:17)
--- NOTE | 2024-09-12 12:36 | P.DS ---
Providers Date of admission: 09/11/24 03:27 Expected date of discharge: 09/12/24 Attending physician: Ashleigh Grimm Consults: 09/11/24 03:25 Consult Physician Urgent Consulting Provider: Robert Elmore Consult Reason/Comments: Increased right-sided weakness Do you want consulting provider notified?: Yes, Notify in am Primary care physician: Bhaskar Sol Hospital Course: Discharge diagnoses; Ground-level fall Focal motor seizures Right-sided weakness History of prior CVA History of seizure History of hyperlipidemia History of hypertension Hospital course; patient is a 74-year-old gentleman past medical history significant for stroke, hypertension, seizure who presented to the hospital for a fall. Patient apparently was all right last night when he lost his balance and fell from a standing position hitting his head against the door. There was no complaint of loss of consciousness. There was no jerking movement of any extremity. There was no complaint of fecal or urine continence. did notice that the patient was more weaker on his right side, patient does have baseline right-sided weakness but it seemed worse to the family. There is no complaint of chest pain. There is no complaint of shortness of breath. Patient denies any palpitation. There is no complaint of orthopnea or PND. Denies any nausea, vomiting abdominal pain. Patient denies any complaint of dizziness. There is no complaint of headache. Because of his fall, patient was brought to the ER Initial lab work done in the ER showed WBC 8.5, hemoglobin 15.5, platelet count 192 sodium 135, potassium 4.2, BUN 20, creatinine 0.75, glucose 105 UA negative for infection EKG done in the ER showed heart rate of 64 , no ST segment elevation or depression seen, no T-wave inversions seen. CT head done showed no acute intracranial process CT cervical spine showed no cervical spine fractures X-ray right ankle showed a metallic plate of the lateral aspect of distal fibula, no acute fracture or dislocation. Mild narrowing and osteophytosis of the ankle mortise joint consistent with posttraumatic arthritis X-ray hip and pelvis done showed proximal femurs are intact and normally positioned with respect to the acetabulum bilaterally. X-ray right knee done showed surgical changes consistent with total knee arthroplasty Patient admitted to internal medicine service 09/12. Patient seen and examined. Patient was eval by neurology, at this time they recommend patient on current dose of antiepileptics. PT and OT evaluated, cleared the patient for discharge home with home care PHYSICAL EXAMINATION: GENERAL: The patient is alert and oriented x3, not in any acute distress. Well developed, well nourished. HEENT: Pupils are round and equally reacting to light. EOMI. No scleral icterus. No conjunctival pallor. Normocephalic, atraumatic. No pharyngeal erythema. No thyromegaly. CARDIOVASCULAR: S1 and S2 present. No murmurs, rubs, or gallops. PULMONARY: Chest is clear to auscultation, no wheezing or crackles. ABDOMEN: Soft, nontender, nondistended, normoactive bowel sounds. No palpable organomegaly. MUSCULOSKELETAL: No joint swelling or deformity. EXTREMITIES: No cyanosis, clubbing, or pedal edema. NEUROLOGICAL: Right-sided weakness SKIN: No rashes. Dictation was produced using [employer] dictation software. please excuse any grammatical, word or spelling errors. Patient Condition at Discharge: Fair Plan - Discharge Summary Discharge Rx Participant: No New Discharge Prescriptions: Continue Pravastatin Sodium [Pravachol] 20 mg PO HS@2200 amLODIPine [Norvasc] 5 mg PO HS@2200 Benazepril HCl 20 mg PO DAILY@1000 Lacosamide [Vimpat] 200 mg PO Q12HR@1000,2200 Calcium(Unknown Dose) 1 tab PO DAILY@1000 Vitamin D3(Unknown Dose) 1 tab PO DAILY@1000 Amoxicillin 2,000 mg PO ONCE PRN PRN Reason: dental appt. diazePAM [Valium] 2 mg PO TID PRN PRN Reason: dizziness levETIRAcetam [Keppra] 500 mg PO Q12HR@1000,2200 Aspirin [Adult Low Dose Aspirin EC] 81 mg PO Q12HR@1000,2200 Lacosamide [Vimpat] 50 mg PO Q12HR@1000,2200 Vitamin B Complex 1 cap PO DAILY@1000 Mirabegron [Myrbetriq] 25 mg PO DAILY@1000 Albuterol Sulfate [Ventolin HFA] 2 puff INHALATION RT-QID PRN PRN Reason: Shortness Of Breath Carbamide Peroxide [Debrox Otic] 5 drops BOTH EARS SA@2200 Discharge Medication List Benazepril HCl 20 mg PO DAILY@1000 11/08/16 [History] Pravastatin Sodium [Pravachol] 20 mg PO HS@219911/08/16 [History] amLODIPine [Norvasc] 5 mg PO HS@219911/08/16 [History] Aspirin [Adult Low Dose Aspirin EC] 81 mg PO Q12HR@1000,219902/04/21 [History] levETIRAcetam [Keppra] 500 mg PO Q12HR@1000,219902/04/21 [History] Lacosamide [Vimpat] 50 mg PO Q12HR@1000,219909/22/21 [History] Lacosamide [Vimpat] 200 mg PO Q12HR@1000,219909/22/21 [History] Vitamin B Complex 1 cap PO DAILY@99901/20/22 [History] Mirabegron [Myrbetriq] 25 mg PO DAILY@99901/12/23 [History] Albuterol Sulfate [Ventolin HFA] 2 puff INHALATION RT-QID PRN 09/11/24 [History] Amoxicillin 2,000 mg PO ONCE PRN 09/11/24 [History] Calcium(Unknown Dose) 1 tab PO DAILY@99909/11/24 [History] Carbamide Peroxide [Debrox Otic] 5 drops BOTH EARS SA@219909/11/24 [History] Vitamin D3(Unknown Dose) 1 tab PO DAILY@99909/11/24 [History] diazePAM [Valium] 2 mg PO TID PRN 09/11/24 [History] Follow up Appointment(s)/Referral(s): Bhaskar Sol MD [Primary Care Provider] - 1-2 days Discharge Disposition: HOME WITH HOME HEALTH SERVICES
== END 2024-09-12 13:35 | disposition home health service (06) ==
LOC: EC 00:12 → 3SCARD 03:27 → 6NMEDSUR 05:24 → 1SOBS 18:41
PROVIDERS: ADMIT Hospitalist; ATTEND Hospitalist
DX: G81.91 Hemiplegia, unspecified affecting right dominant side (principal); S08.0XXA Avulsion of scalp, initial encounter; W01.198A Fall on same level from slipping, tripping and stumbling with subsequent striking against other object, initial encounter; G40.109 Localization-related (focal) (partial) symptomatic epilepsy and epileptic syndromes with simple partial seizures, not intractable, without status epilepticus; G96.08 Other cranial cerebrospinal fluid leak; Y92.009 Unspecified place in unspecified non-institutional (private) residence as the place of occurrence of the external cause; R47.01 Aphasia; R41.89 Other symptoms and signs involving cognitive functions and awareness; I10 Essential (primary) hypertension; E78.5 Hyperlipidemia, unspecified; M25.771 Osteophyte, right ankle; Z79.82 Long term (current) use of aspirin; Z79.899 Other long term (current) drug therapy; Z91.81 History of falling; Z87.891 Personal history of nicotine dependence; Z86.03 Personal history of neoplasm of uncertain behavior; Z86.73 Personal history of transient ischemic attack (TIA), and cerebral infarction without residual deficits
CPT/HCPCS: 96361 ×3; 96360; 99285; 36415; 93005; 97530; 97162; 97166; 80053 ×2; 83605; 83735; 85025 ×2; 85610; 85730; 81003; 73502; 73562; 73610; 72125; 70450; G0378 ×4

== ENCOUNTER → 2024-10-11 | Outpatient (CLI) | payer MEDICARE ==
[2024-10-11 15:22] VITALS: BP 124/62; PULSE 65; RESP 20; TEMP 98
--- NOTE | 2024-10-11 15:51 | P.SLEEP ---
History of Present Illness DATE: 10/11/2024 CONSULTATION/NEW PATIENT EVALUATION HISTORY OF PRESENT ILLNESS/SLEEP-WAKE EVALUATION: 74-year-old gentleman had been evaluated in the sleep center for possible obstructive sleep apnea hypopnea syndrome. SLEEP SCHEDULE: Usually sleep schedule from 11 PM to 8 AM. FALLING ASLEEP: Usually no significant problems with falling asleep. DURING SLEEP: Patient has loud snoring, episodes of choking during the sleep, awakenings from sleep multiple times with up to 6 episodes of nocturia. Questionable history of hypnogogical hallucinations, no sleep paralysis, or cataplexy. DURING THE DAY/WAKE STATE: In the morning patient wake up tired, has difficulties to pay attention, has problems with memory and concentration. [place] sleepiness scale is in very high range of 17. Patient takes up to 3 naps during the day. PAST MEDICAL HISTORY: Hypertension, glioma of the brain treated surgically, epilepsy, left-sided weakness, bladder cancer. PAST SURGICAL HISTORY: Brain surgery for glioma x 3 in 2013, 2014 and 2016, total right knee replacement 2021, TURP 2022, bladder cancer removed 2024. MEDICATIONS: Levetiracetam, benazepril 20 mg once a day, Myrbetriq 25 mg once a day, amlodipine 5 mg once a day, pravastatin 20 mg once a day, aspirin 81 mg once a day, lacosamide 250 mg twice a day. SOCIAL HISTORY: Please see below. FAMILY HISTORY: Please see below. REVIEW OF SYSTEMS: Loud snoring, multiple awakenings from sleep, sleepiness during the day. No fevers. No double vision. No recent chest pain. No shortness of breath. No abdominal pain. No bleeding episodes. No blood in urine. No seizure episodes. PHYSICAL EXAMINATION: GENERAL: A pleasant patient without any distress on wheelchair. VITAL SIGNS: Please see below, weight 218 pounds, BMI 31.3. HEENT: PERRLA, EOMI. Evaluation of oropharynx showed tongue protrudes midline, low position of soft palate Mallampati 2, short distance between soft palate and posterior pharyngeal wall. NECK: Supple. No JVD. Thyroid is not palpable. 17-3/4 inches in circumference. LUNGS: Clear to percussion and to auscultation. Good air exchange. No wheezing or rhonchi. HEART: S1, S2 regular. No murmurs, gallops or rubs. ABDOMEN: Soft and nontender. Bowel sounds are present. No organomegaly appreciated. EXTREMITIES: No clubbing or cyanosis. SENIOR BIOSTATISTICIAN: Awake, alert, and oriented x3. Left-sided weakness ASSESSMENT: 1. Loud snoring, multiple awakenings from sleep, weight neck 17 and three- quarter inch circumference, short distance between soft palate and posterior pharyngeal wall, sleepiness severely high [place] Sleepiness Scale of 17. Obstructive sleep apnea hypopnea syndrome. 2. Status post multiple brain surgeries for glioma. 3. History of epilepsy. 4. Hypertension. 5 status post TURP. 6 . Status post bladder surgery for cancer. 7. Status post right knee total replacement. 8. Mild obesity, BMI 31.3 PLAN: 1. Polysomnography for evaluation of patient's breathing during sleep. 2. Plan after reading sleep study. 3. Preferable position during sleep on the side. 4. No driving if patient feels any sleepiness. Patient is aware of civil and criminal liability for unsafe driving. 5. Sleep hygiene with regular sleep time for at least 7.5-8 hours. 6. Watching weight. Thank you very much for referring this patient for consultation. Sincerely, Wild Joy MD, PhD, FAASM. Diplomat of [place] [employer], Sleep Medicine Board by [place] [employer] [place] [employer] Trial Consultant of [facility] [place] cc: Bhaskar Sol MD Past Medical History Past Medical History: Cancer, Deep Vein Thrombosis (DVT), Hypertension, Prostate Disorder Additional Past Medical History / Comment(s): SEE DR SERRANO'S H&P. glioma. limited ROM in neck due to fracture and fusion. slight cognitive impairment due to brain surgeries History of Any Multi-Drug Resistant Organisms: None Reported Past Surgical History: Joint Replacement, Orthopedic Surgery, Prostate Surgery Additional Past Surgical History / Comment(s): brain surgery x3, neck surgery- neck fx (limited ROM), right TKR, prostatectomy Past Anesthesia/Blood Transfusion Reactions: No Reported Reaction Past Psychological History: No Psychological Hx Reported Smoking Status: Former smoker Past Alcohol Use History: None Reported Additional Past Alcohol Use History / Comment(s): quit smoking 30 yrs ago. Past Drug Use History: None Reported - Past Family History Mother Family Medical History: Cancer Additional Family Medical History / Comment(s): BREAST AND ORAL CANCER Father Additional Family Medical History / Comment(s): PACEMAKER Medications and Allergies Home Medications Medication Instructions Recorded Confirmed Type Benazepril HCl 20 mg PO DAILY@1000 11/08/16 09/11/24 History Pravastatin Sodium [Pravachol] 20 mg PO HS@219911/08/16 09/11/24 History amLODIPine [Norvasc] 5 mg PO HS@219911/08/16 09/11/24 History Aspirin [Adult Low Dose Aspirin EC] 81 mg PO Q12HR@1000,219902/04/21 09/11/24 History levETIRAcetam [Keppra] 500 mg PO Q12HR@1000,0 02/04/21 09/11/24 History Lacosamide [Vimpat] 50 mg PO Q12HR@1000,219909/22/21 09/11/24 History Lacosamide [Vimpat] 200 mg PO Q12HR@1000,219909/22/21 09/11/24 History Vitamin B Complex 1 cap PO DAILY@1000 01/20/22 09/11/24 History Mirabegron [Myrbetriq] 25 mg PO DAILY@1000 01/12/23 09/11/24 History Albuterol Sulfate [Ventolin HFA] 2 puff INHALATION RT-QID PRN 09/11/24 09/11/24 History Amoxicillin 2,000 mg PO ONCE PRN 09/11/24 09/11/24 History Calcium(Unknown Dose) 1 tab PO DAILY@1000 09/11/24 09/11/24 History Carbamide Peroxide [Debrox Otic] 5 drops BOTH EARS SA@219909/11/24 09/11/24 History Vitamin D3(Unknown Dose) 1 tab PO DAILY@1000 09/11/24 09/11/24 History diazePAM [Valium] 2 mg PO TID PRN 09/11/24 09/11/24 History Allergies Allergy/AdvReac Type Severity Reaction Status Date / Time No Known Allergies Allergy Verified 09/11/24 11:37 Physical Exam Vitals: Vital Signs Temp Pulse Resp BP Pulse Ox 10/11/24 15:21 98.0 F 65 20 124/62 93 L Intake and Output 10/11/24 10/11/24 10/11/24 06:59 14:59 22:59 Other: Weight 98.883 kg Sleep Note - Sleep Data ESS Total: 17 - Sleep Note Sleep Note: Temperature: 98.0 F Pulse Rate: 65 Respiratory Rate: 20 Blood Pressure: 124/62 SpO2: 93 Height: 5 ft 10 in Weight: 98.883 kg BMI: Neck Circumference: 17.7
== END ==
LOC: 3 N SLEEP 14:45
PROVIDERS: ATTEND Internal Medicine
DX: G47.33 Obstructive sleep apnea (adult) (pediatric) (principal); I10 Essential (primary) hypertension; E66.9 Obesity, unspecified; Z98.890 Other specified postprocedural states; Z86.69 Personal history of other diseases of the nervous system and sense organs; Z98.52 Vasectomy status; Z85.51 Personal history of malignant neoplasm of bladder; Z96.651 Presence of right artificial knee joint; Z68.31 Body mass index [BMI] 31.0-31.9, adult
CPT/HCPCS: 99211

== ENCOUNTER 2024-11-09 11:04 | Day surgery (SDC) | payer MEDICARE ==
--- NOTE | 2024-11-09 06:50 | P.GSHP ---
History of Present Illness H&P Date: 11/09/24 Chief Complaint: Recurrent urothelial carcinoma The patient is a 74-year-old white male who underwent a TURP in 2019 to. In July 2024, he underwent resection of a bladder tumor revealing low-grade, TA urothelial carcinoma. Recent cystoscopy has shown a 1.5 cm tumor arising from the right lateral bladder wall. He now comes for resection. - Cardiovascular Cardiovascular: Reports high blood pressure - Genitourinary (Male) Genitourinary: Denies dysuria, Denies hematuria Past Medical History Past Medical History: Cancer, Deep Vein Thrombosis (DVT), Hyperlipidemia, Hypertension, Prostate Disorder Additional Past Medical History / Comment(s): glioma, aphasia, limited ROM in neck due to fracture and fusion, slight cognitive impairment due to brain surgeries, Rt. sided weakness, Rt. tremor, neurologist thinks pt. has had recent focal motor seizures History of Any Multi-Drug Resistant Organisms: None Reported Past Surgical History: Joint Replacement, Orthopedic Surgery, Prostate Surgery Additional Past Surgical History / Comment(s): brain surgery x3, neck surgery- neck fx (limited ROM), Rt. TKA, TURP Past Anesthesia/Blood Transfusion Reactions: No Reported Reaction Smoking Status: Former smoker - Past Family History Mother Family Medical History: Cancer Additional Family Medical History / Comment(s): BREAST AND ORAL CANCER, age 78 Father Additional Family Medical History / Comment(s): PACEMAKER, age 80 Medications and Allergies Home Medications Medication Instructions Recorded Confirmed Type Benazepril HCl 20 mg PO DAILY@1000 11/08/16 11/03/24 History Pravastatin Sodium [Pravachol] 20 mg PO HS@219911/08/16 11/03/24 History amLODIPine [Norvasc] 5 mg PO HS@219911/08/16 11/03/24 History Aspirin [Adult Low Dose Aspirin EC] 81 mg PO Q12HR@1000,0 02/04/21 11/06/24 History levETIRAcetam [Keppra] 1,000 mg PO Q12HR@1000,0 02/04/21 11/03/24 History Lacosamide [Vimpat] 50 mg PO Q12HR@1000,2200 09/22/21 11/03/24 History Lacosamide [Vimpat] 200 mg PO Q12HR@1000,0 09/22/21 11/03/24 History Vitamin B Complex 1 cap PO DAILY@1000 01/20/22 11/03/24 History Mirabegron [Myrbetriq] 25 mg PO DAILY@1000 01/12/23 11/03/24 History Albuterol Sulfate [Ventolin HFA] 2 puff INHALATION RT-QID PRN 09/11/24 11/03/24 History Calcium(Unknown Dose) 1 tab PO DAILY@99909/11/24 11/03/24 History Carbamide Peroxide [Debrox Otic] 5 drops BOTH EARS SA@219909/11/24 11/03/24 History Vitamin D3(Unknown Dose) 1 tab PO DAILY@99909/11/24 11/03/24 History Allergies Allergy/AdvReac Type Severity Reaction Status Date / Time No Known Allergies Allergy Verified 11/03/24 10:35 Surgical - Exam - General well developed, well nourished, no distress - Respiratory normal respiratory effort - Genitourinary normal penis with no external lesions, testicles non-tender - Psychiatric oriented to time, oriented to person, oriented to place, speech is normal, memory intact Assessment and Plan (1) Malignant neoplasm of bladder, unspecified Status: Acute Code(s): C67.9 - MALIGNANT NEOPLASM OF BLADDER, UNSPECIFIED SNOMED Code(s): 463956597 Plan: Cystoscopy, transurethral resection of bladder tumor. The procedure has been reviewed in detail with the patient and his . They were made aware of potential risks, which include anesthesia, bleeding, infection, postoperative voiding difficulty, and bladder perforation. Gemcitabine will be instilled into the bladder postresection to reduce the risk of recurrent urothelial carcinoma. However, this will be held if there is any concern of bladder perforation.
[~2024-11-09 11:04] MED LIST changes: +GEMCITABINE HCL MISCELLANE PRN; +HYDROmorphone 0.5 MG/0.5 ML SYRINGE IVP PRN; +MIDAZOLAM 2 MG/2 ML VIAL IV PRN; -SODIUM CHLORIDE 0.9% 1,000 ML IV SCH; -SODIUM CHLORIDE 0.9% 500 ML 500 ML IV ONE; +SODIUM CHLORIDE 0.9% MISCELLANE PRN
[2024-11-09] MEDS: IV FLUID CONTINUATION 1,000 ML IV ONE (11:28)
[2024-11-09] MEDS: ONDANSETRON 4 MG/2 ML VIAL IVP ONE (11:57)
[2024-11-09] MEDS: LACTATED RINGERS 1,000 ML IV SCH (11:57)
[2024-11-09] MEDS: DEXAMETHASONE SOD PHOSPHATE 4 MG/ML 1 ML VIAL IV ONE (11:57)
[2024-11-09] MEDS ORDERED: fentaNYL (PF) 50 MCG/ML 2 ML AMP ONE (12:47)
[2024-11-09] MEDS ORDERED: NEOSTIGMINE 1 MG/ML 10 ML VIAL ONE (12:47)
[2024-11-09] MEDS ORDERED: SUCCINYLCHOLINE CHLORIDE 200 MG/10 ML VIAL IV ONE (12:47)
[2024-11-09] MEDS ORDERED: PROPOFOL 10 MG/ML 20 ML VIAL IV ONE (12:47)
[2024-11-09] MEDS ORDERED: LABETALOL 5 MG/ML VIAL MDV ONE (12:47)
[2024-11-09] MEDS ORDERED: SUGAMMADEX SODIUM 100 MG/ML SYR IV ONE (12:47)
[2024-11-09] MEDS ORDERED: GLYCOPYRROLATE 0.2 MG/ML 2 ML VIAL ONE (12:47)
[2024-11-09] MEDS ORDERED: ROCURONIUM 10 MG/ML (5 ML VIAL) IV ONE (12:47)
[2024-11-09] MEDS ORDERED: ePHEDrine 50 MG/ML 1 ML VIAL ONE (12:47)
[2024-11-09] MEDS ORDERED: LIDOCAINE 1% INJ 10MG/ML (20 ML MDV) ONE (12:47)
[2024-11-09 13:55] VITALS: TEMP 97.4
--- NOTE | 2024-11-09 14:01 | P.OP ---
Date of Procedure: 11/09/24 Preoperative Diagnosis: Urothelial carcinoma the bladder Postoperative Diagnosis: Same Procedure(s) Performed: Cystoscopy, Transurethral Resection of Bladder Tumor (Medium), Instillation of Intravesical Gemcitabine Anesthesia: JOSEE Surgeon: Richard Herrera Estimated Blood Loss (ml): 0 IV fluids (ml): 300 Pathology: other (Bladder tumor fragments) Condition: stable Disposition: PACU Indications for Procedure: The patient is a 74-year-old white male who underwent a TURP in 2019. In July 2024, he underwent resection of a bladder tumor revealing low-grade, TA urothelial carcinoma. Recent cystoscopy has shown a 1.5 cm tumor arising from the right lateral bladder wall. He now comes for resection. Operative Findings: Multiple flat tumors in the right lateral bladder wall, covering an area measuring approximately 2-3 cm in diameter. Description of Procedure: The patient was taken in the operating room and placed in the dorsolithotomy position, with his legs supported in Adiel stirrups. The external genitalia was prepped and draped sterilely. The 24-[place] Olympus resectoscope sheath was introduced into the bladder. The bladder was inspected. Both ureteral orifices were of normal anatomic location and configuration, and clear urine effluxed from both. The entire bladder was examined, revealing multiple flat tumors arising from the right lateral bladder wall. These had a low-grade appearance, and an area measuring to to 3 cm in size. The prostate was mildly enlarged consistent with the patient's age. No urothelial changes were seen within the prostatic urethra. Using the bipolar cutting loop, the tumors were resected down to the muscle. An obturator reflex was noted, and therefore the resection was superficial to avoid bladder perforation. Excellent hemostasis was att ained. The resected tissue was saved and sent for pathologic examination, though much of the tumor vaporized. A 20-[place] Sandoval catheter was inserted. The return was clear. To grams of gemcitabine were instilled into the bladder. The Sandoval catheter was plugged. The patient tolerated the procedure well and was taken to the recovery room in stable condition.
[2024-11-09 16:24] VITALS: BP 118/63; PULSE 77; RESP 16
== END 2024-11-09 16:27 | disposition home or self-care (01) ==
LOC: OR 11:04
PROVIDERS: ATTEND Urology
DX: C67.2 Malignant neoplasm of lateral wall of bladder (principal); I10 Essential (primary) hypertension; E78.5 Hyperlipidemia, unspecified; N42.9 Disorder of prostate, unspecified; G81.91 Hemiplegia, unspecified affecting right dominant side; R47.01 Aphasia; Z79.82 Long term (current) use of aspirin; Z79.899 Other long term (current) drug therapy; Z87.891 Personal history of nicotine dependence; Z85.51 Personal history of malignant neoplasm of bladder; Z85.841 Personal history of malignant neoplasm of brain; Z86.718 Personal history of other venous thrombosis and embolism; Z98.1 Arthrodesis status
CPT/HCPCS: 52235; 51720; J1100; J2405; J0690